=== PATIENT | male | born 1935 | race Caucasian/White ===

== ENCOUNTER → 2017-07-02 14:48 | Outpatient (CLI) | payer MEDICARE, OTHER, SELFPAY ==
[2017-07-02 17:34] LABS: Absolute Lymphocyte Count 1.03 X10^3/ul (0.83-4.51); Absolute Neutrophil Count 3.2 X10^3/uL (2.0-7.7); Basophil# 0.02 X10^3/uL; Basophil% 0.4 % (0-1); Eosinophil# 0.26 X10^3/uL; Eosinophils% 5.1 % (0-5); Hematocrit 36.4 % (40-54); Hemoglobin 12.1 g/dl (13.0-16.5); Lymphocyte # 1.03 X10^3/ul (4.0); Lymphocyte % 20.3 % (19-41); Mean Corp Hgb Conc 33.2 g/gl (32-36); Mean Corpuscular Hgb 30.3 pg (27.0-32.0); Mean Platelet Vol. 11.3 fl (6.2-12.0); Monocyte# 0.58 X10^3/uL; Monocyte% 11.4 % (0-10); Neutrophil # 3.19 X10^3/uL (2.7-7.7); Neutrophil % 62.8 % (47-70); Platelet Count 255 K/mm3 (150-450); RBC Distribution Width CV 12.6 % (11.6-14.6); RBC Distribution Width SD 41.6 fl (35.1-43.9); White Blood Count 5.1 K/mm3 (4.4-11.0)
[2017-07-02 17:46] LABS: POSITIVE COUNT NO; POSITIVE DIFFERENTIAL NO; POSITIVE MORPHOLOGY NO; Vitamin D,25 Hydroxy 30.4 ng/mL (29.95-100.01)
[2017-07-02 17:51] LABS: AST(SGOT) 27 U/L (15-37); Alanine Aminotransfer ALT/SGPT 24 U/L (16-61); Albumin, Serum 4.1 g/dL (3.2-5.0); Alkaline Phosphatase 68 U/L (45-117); Anion Gap 12 (5-15); BUN 30 mg/dL (7-18); Calcium,Total 8.7 mg/dL (8.5-10.1); Chloride 102 mmol/L (98-107); Creatinine, Serum 1.87 mg/dL (0.70-1.30); EST Glomerular Filtration Rate 37 mL/min (>60); Est Glom Filt Rate - Afr Amer 45 mL/min (>60); Globulin 4.1 g/dL (2.2-4.2); Glucose 75 mg/dL (74-106); Potassium 4.1 mmol/L (3.5-5.1); Protein, Total 8.2 g/dL (6.4-8.2); Sodium Level 138 mmol/L (136-145); Thyroid Stim Hormone (TSH) 4.74 uIU/mL (0.358-3.74)
== END ==
PROVIDERS: Family Provider Family Medicine Geriatric Medicine; PCP Family Medicine Geriatric Medicine; Visit Provider Family Medicine Geriatric Medicine
DX: E55.9 Vitamin D deficiency, unspecified (principal); R53.83 Other fatigue
CPT/HCPCS: 36415; 80053; 82306; 84443; 85025

== ENCOUNTER → 2017-08-14 09:03 | Outpatient (CLI) | payer MEDICARE, OTHER, SELFPAY ==
[2017-08-14 13:19] LABS: Thyroid Stim Hormone (TSH) 1.61 uIU/mL (0.358-3.74)
== END ==
PROVIDERS: Family Provider Family Medicine Geriatric Medicine; PCP Family Medicine Geriatric Medicine; Visit Provider Family Medicine Geriatric Medicine
DX: E03.9 Hypothyroidism, unspecified (principal)
CPT/HCPCS: 36415; 84443

== ENCOUNTER → 2018-01-03 13:51 | Outpatient (CLI) | payer MEDICARE, OTHER, SELFPAY ==
[2018-01-03 17:04] LABS: Absolute Lymphocyte Count 0.73 X10^3/ul (0.83-4.51); Basophil# 0.02 X10^3/uL; Basophil% 0.6 % (0-1); Eosinophil# 0.17 X10^3/uL; Hemoglobin 12.3 g/dl (13.0-16.5); Lymphocyte # 0.73 X10^3/ul (4.0); Lymphocyte % 21.5 % (19-41); Mean Corp Hgb Conc 32.4 g/gl (32-36); Mean Corpuscular Hgb 28.9 pg (27.0-32.0); Mean Corpuscular Volume 89.4 fL (80-94); Mean Platelet Vol. 10.4 fl (6.2-12.0); Monocyte# 0.52 X10^3/uL; Monocyte% 15.3 % (0-10); Neutrophil # 1.96 X10^3/uL (2.7-7.7); Neutrophil % 57.6 % (47-70); Platelet Count 218 K/mm3 (150-450); RBC Distribution Width CV 13.1 % (11.6-14.6); RBC Distribution Width SD 42.9 fl (35.1-43.9); Red Blood Count 4.25 M/mm3 (4.6-6.2); White Blood Count 3.4 K/mm3 (4.4-11.0)
[2018-01-03 17:06] LABS: POSITIVE COUNT NO; POSITIVE DIFFERENTIAL NO; POSITIVE MORPHOLOGY NO
[2018-01-03 17:21] LABS: Vitamin D,25 Hydroxy 28.1 ng/mL (29.95-100.01)
[2018-01-03 17:28] LABS: ALB/GLOB Ratio 1.1 RATIO (0.9-2.4); AST(SGOT) 30 U/L (15-37); Alanine Aminotransfer ALT/SGPT 21 U/L (16-61); Alkaline Phosphatase 64 U/L (45-117); Anion Gap 8 (5-15); BUN 41 mg/dL (7-18); Calcium,Total 8.5 mg/dL (8.5-10.1); Chloride 109 mmol/L (98-107); Creatinine, Serum 1.86 mg/dL (0.70-1.30); EST Glomerular Filtration Rate 37 mL/min (>60); Est Glom Filt Rate - Afr Amer 45 mL/min (>60); Globulin 3.8 g/dL (2.2-4.2); Glucose 122 mg/dL (74-106); Potassium 4.3 mmol/L (3.5-5.1); Protein, Total 7.8 g/dL (6.4-8.2); Sodium Level 141 mmol/L (136-145)
== END ==
PROVIDERS: Family Provider Family Medicine Geriatric Medicine; PCP Family Medicine Geriatric Medicine; Visit Provider Family Medicine Geriatric Medicine
DX: E55.9 Vitamin D deficiency, unspecified (principal); R53.83 Other fatigue
CPT/HCPCS: 36415; 80053; 82306; 84443; 85025

== ENCOUNTER → 2018-06-03 09:01 | Outpatient (CLI) | payer MEDICARE, OTHER, SELFPAY ==
[2018-03-04 14:19] VITALS: BMI 25.8
== END ==
PROVIDERS: Family Provider Family Medicine Geriatric Medicine; PCP Family Medicine Geriatric Medicine; Referring Provider Urology; Visit Provider Urology
DX: Z12.5 Encounter for screening for malignant neoplasm of prostate (principal)
CPT/HCPCS: 36415; 84153; G0103

== ENCOUNTER → 2018-07-04 13:54 | Outpatient (CLI) | payer MEDICARE, OTHER, SELFPAY ==
[2018-03-04 14:19] VITALS: BMI 25.8
[2018-07-04 14:24] LABS: Absolute Lymphocyte Count 1.01 X10^3/ul (0.83-4.51); Absolute Neutrophil Count 2.9 X10^3/uL (2.0-7.7); Basophil# 0.03 X10^3/uL; Basophil% 0.6 % (0-1); Eosinophil# 0.43 X10^3/uL; Eosinophils% 8.5 % (0-5); Hematocrit 38.3 % (40-54); Hemoglobin 12.4 g/dl (13.0-16.5); Lymphocyte # 1.01 X10^3/ul (4.0); Lymphocyte % 20.1 % (19-41); Mean Corp Hgb Conc 32.4 g/gl (32-36); Mean Corpuscular Hgb 29.3 pg (27.0-32.0); Mean Corpuscular Volume 90.5 fL (80-94); Mean Platelet Vol. 11.5 fl (6.2-12.0); Monocyte% 13.9 % (0-10); Neutrophil # 2.86 X10^3/uL (2.7-7.7); Neutrophil % 56.9 % (47-70); POSITIVE COUNT NO; POSITIVE DIFFERENTIAL NO; POSITIVE MORPHOLOGY NO; Platelet Count 227 K/mm3 (150-450); RBC Distribution Width CV 12.8 % (11.6-14.6); RBC Distribution Width SD 41.8 fl (35.1-43.9); Red Blood Count 4.23 M/mm3 (4.6-6.2)
[2018-07-04 14:31] LABS: Vitamin D,25 Hydroxy 32.5 ng/mL (29.95-100.01)
[2018-07-04 14:38] LABS: ALB/GLOB Ratio 1.2 RATIO (0.9-2.4); AST(SGOT) 25 U/L (15-37); Alanine Aminotransfer ALT/SGPT 19 U/L (16-61); Albumin, Serum 4.2 g/dL (3.2-5.0); Alkaline Phosphatase 56 U/L (45-117); Anion Gap 7 (5-15); BUN 37 mg/dL (7-18); BUN/Creat Ratio 19.4 RATIO (10-20); Calcium,Total 8.5 mg/dL (8.5-10.1); Chloride 105 mmol/L (98-107); Creatinine, Serum 1.91 mg/dL (0.70-1.30); EST Glomerular Filtration Rate 36 mL/min (>60); Est Glom Filt Rate - Afr Amer 44 mL/min (>60); Globulin 3.4 g/dL (2.2-4.2); Glucose 88 mg/dL (74-106); Potassium 4.3 mmol/L (3.5-5.1); Protein, Total 7.6 g/dL (6.4-8.2); Sodium Level 138 mmol/L (136-145); Thyroid Stim Hormone (TSH) 3.25 uIU/mL (0.358-3.74)
== END ==
PROVIDERS: Family Provider Family Medicine Geriatric Medicine; PCP Family Medicine Geriatric Medicine; Visit Provider Family Medicine Geriatric Medicine
DX: E55.9 Vitamin D deficiency, unspecified (principal); R53.83 Other fatigue
CPT/HCPCS: 36415; 80053; 82306; 84443; 85025

== ENCOUNTER → 2018-07-12 16:05 | Outpatient (CLI) | payer MEDICARE, OTHER, SELFPAY ==
[2018-03-04 14:19] VITALS: BMI 25.8
--- NOTE | 2018-07-12 16:10 | US_ITS ---
STUDY: ABDOMINAL ULTRASOUND - RIGHT UPPER QUADRANT REASON FOR VISIT: Male, 82 years old. Pain TECHNIQUE: Ultrasound evaluation of the right upper quadrant was performed with real-time and static flores-scale imaging. TECHNICAL QUALITY: Adequate. COMPARISON: None. FINDINGS: Liver: The liver measures 13.7 cm. There is normal echogenicity of the liver. The bile ducts are within normal limits. There is hepatic color flow. The direction of portal flow is hepatopetal. There is no demonstrated mass lesion. Gallbladder: Normal distended gallbladder. The gallbladder wall measures 2.4 mm. There is a negative sonographic Candelario's sign. There is no pericholecystic fluid. There are no gallstones. Common Bile Duct (C.B.D.): The common bile duct measures 2.0 mm. Pancreas: Head and uncinate process of the pancreas appear grossly normal. The body and tail the pancreas are obscured. Right Kidney: Normal size of the right kidney. The right kidney measures 9.2 x 4.6 x 4.7 cm. Normal renal cortex. The right cortex measures 1.0 cm. There is no demonstrated renal mass or cyst. There is no right hydronephrosis. US/Abdomen Limited IMPRESSION: Nonspecific distention of the gallbladder. No evidence of gallstones or ultrasound evidence of cholecystitis. Electronically Signed: Eloisa Benz MD at 16:03 EDT Tel , Service support ,
[2018-07-12 16:47] LABS: Absolute Lymphocyte Count 1.29 X10^3/ul (0.83-4.51); Absolute Neutrophil Count 2.5 X10^3/uL (2.0-7.7); Basophil# 0.03 X10^3/uL; Basophil% 0.6 % (0-1); Eosinophil# 0.32 X10^3/uL; Eosinophils% 6.8 % (0-5); Hematocrit 38.2 % (40-54); Hemoglobin 12.6 g/dl (13.0-16.5); Lymphocyte # 1.29 X10^3/ul (4.0); Lymphocyte % 27.4 % (19-41); Mean Corpuscular Hgb 29.4 pg (27.0-32.0); Mean Platelet Vol. 10.7 fl (6.2-12.0); Monocyte# 0.57 X10^3/uL; Monocyte% 12.1 % (0-10); Neutrophil # 2.49 X10^3/uL (2.7-7.7); Neutrophil % 53.1 % (47-70); Platelet Count 229 K/mm3 (150-450); RBC Distribution Width CV 12.9 % (11.6-14.6); RBC Distribution Width SD 41.4 fl (35.1-43.9); Red Blood Count 4.29 M/mm3 (4.6-6.2); White Blood Count 4.7 K/mm3 (4.4-11.0)
[2018-07-12 16:48] LABS: POSITIVE COUNT NO; POSITIVE DIFFERENTIAL NO; POSITIVE MORPHOLOGY NO
[2018-07-12 17:13] LABS: ALB/GLOB Ratio 1.3 RATIO (0.9-2.4); AST(SGOT) 32 U/L (15-37); Alanine Aminotransfer ALT/SGPT 23 U/L (16-61); Albumin, Serum 4.3 g/dL (3.2-5.0); Alkaline Phosphatase 60 U/L (45-117); Anion Gap 5 (5-15); BUN 26 mg/dL (7-18); BUN/Creat Ratio 14.3 RATIO (10-20); Calcium,Total 8.5 mg/dL (8.5-10.1); Chloride 107 mmol/L (98-107); Creatinine, Serum 1.82 mg/dL (0.70-1.30); EST Glomerular Filtration Rate 38 mL/min (>60); Est Glom Filt Rate - Afr Amer 46 mL/min (>60); Globulin 3.3 g/dL (2.2-4.2); Glucose 93 mg/dL (74-106); Potassium 4.2 mmol/L (3.5-5.1); Protein, Total 7.6 g/dL (6.4-8.2); Sodium Level 141 mmol/L (136-145)
== END ==
PROVIDERS: Family Provider Family Medicine Geriatric Medicine; PCP Family Medicine Geriatric Medicine; Referring Provider Family Medicine Geriatric Medicine; Visit Provider Family Medicine Geriatric Medicine
DX: R53.83 Other fatigue (principal)
CPT/HCPCS: 36415; 76705; 80053; 85025

== ENCOUNTER → 2018-12-12 09:42 | Outpatient (CLI) | payer MEDICARE, OTHER, SELFPAY ==
[2018-03-04 14:19] VITALS: BMI 25.8
[2018-12-12 12:24] LABS: Albumin, Serum 3.9 g/dL (3.2-5.0); BUN 31 mg/dL (7-18); BUN/Creat Ratio 18.1 RATIO (10-20); Calcium,Total 8.7 mg/dL (8.5-10.1); Chloride 105 mmol/L (98-107); Creatinine, Serum 1.71 mg/dL (0.70-1.30); EST Glomerular Filtration Rate 41 mL/min (>60); Est Glom Filt Rate - Afr Amer 50 mL/min (>60); Glucose 84 mg/dL (74-106); Potassium 4.7 mmol/L (3.5-5.1); Sodium Level 140 mmol/L (136-145)
[2018-12-12 12:25] LABS: Protein, Urine (Random) 27.9 mg/dL (<11.9); Protein:Creat Ratio 220 mg/g CRE (0-200)
[2018-12-12 12:35] LABS: PTHIN 54.2 pg/mL (18.4-80.1)
== END ==
PROVIDERS: Family Provider Family Medicine Geriatric Medicine; PCP Family Medicine Geriatric Medicine; Visit Provider Internal Medicine Nephrology
DX: D89.0 Polyclonal hypergammaglobulinemia (principal)
CPT/HCPCS: 36415; 80069; 82570; 83970; 84156

== ENCOUNTER → 2018-12-31 13:21 | Outpatient (CLI) | payer MEDICARE, OTHER, SELFPAY ==
[2018-03-04 14:19] VITALS: BMI 25.8
--- NOTE | 2019-01-01 08:45 | PFT ---
INTRODUCTION: The patient is an 83-year-old male that presents for pulmonary function studies secondary to a diagnosis of asthma. Respiratory therapy reports good patient effort. Bronchodilators were used with testing. INTERPRETATION: Forced expiration spirometry demonstrates no evidence of a large airways obstructive ventilatory defect. There was no significant response to aerosolized bronchodilators, based upon strict ATS criteria. Spirograms are of good quality and plateau normally. Body plethysmography was performed and reveals lung volumes to be within normal limits. Diffusing capacity by single breath CO is within normal limits at 80% of predicted. IMPRESSION: Normal pulmonary function studies.
== END ==
PROVIDERS: Family Provider Family Medicine Geriatric Medicine; PCP Family Medicine Geriatric Medicine; Referring Provider Internal Medicine Critical Care Medicine; Visit Provider Internal Medicine Critical Care Medicine
DX: J62.8 Pneumoconiosis due to other dust containing silica (principal); J45.909 Unspecified asthma, uncomplicated; G47.61 Periodic limb movement disorder
CPT/HCPCS: 94060; 94726; 94729

== ENCOUNTER → 2019-01-09 11:05 | Outpatient (CLI) | payer MEDICARE, OTHER, SELFPAY ==
[2019-01-09 08:07] VITALS: BMI 24.9
[2019-01-09 11:46] LABS: Absolute Lymphocyte Count 1.03 X10^3/uL (0.83-4.51); Absolute Neutrophil Count 3.6 X10^3/uL (2.0-7.7); Basophil# 0.02 X10^3/uL; Basophil% 0.4 % (0-1); Eosinophil# 0.47 X10^3/uL; Eosinophils% 8.3 % (0-5); Hematocrit 39.6 % (40-54); Hemoglobin 12.8 g/dL (13.0-16.5); Lymphocyte # 1.03 X10^3/ul (4.0); Lymphocyte % 18.3 % (19-41); Mean Corp Hgb Conc 32.3 g/dL (32-36); Mean Corpuscular Hgb 29.7 pg (27.0-32.0); Mean Corpuscular Volume 91.9 fL (80-94); Mean Platelet Vol. 12.2 fl (6.2-12.0); Monocyte% 8.9 % (0-10); NRBC Flagged by Analyzer 0 % (0-5); Neutrophil # 3.58 X10^3/uL (2.7-7.7); Neutrophil % 63.6 % (47-70); POSITIVE COUNT YES; Platelet Count 172 K/mm3 (150-450); RBC Distribution Width CV 12.3 % (11.6-14.6); RBC Distribution Width SD 41.1 fl (35.1-43.9); Red Blood Count 4.31 M/mm3 (4.6-6.2); White Blood Count 5.6 K/mm3 (4.4-11.0)
[2019-01-09 11:51] LABS: Differential Indicated SCAN CRITERIA MET
[2019-01-09 12:08] LABS: ALB/GLOB Ratio 1.1 RATIO (0.9-2.4); AST(SGOT) 26 U/L (15-37); Alanine Aminotransfer ALT/SGPT 20 U/L (16-61); Albumin, Serum 3.9 g/dL (3.2-5.0); Alkaline Phosphatase 75 U/L (45-117); Anion Gap 6 (5-15); BUN 35 mg/dL (7-18); BUN/Creat Ratio 19.6 RATIO (10-20); Calcium,Total 8.7 mg/dL (8.5-10.1); Chloride 104 mmol/L (98-107); Creatinine, Serum 1.79 mg/dL (0.70-1.30); EST Glomerular Filtration Rate 39 mL/min (>60); Est Glom Filt Rate - Afr Amer 47 mL/min (>60); Globulin 3.6 g/dL (2.2-4.2); Glucose 93 mg/dL (74-106); Potassium 4.5 mmol/L (3.5-5.1); Protein, Total 7.5 g/dL (6.4-8.2); Sodium Level 139 mmol/L (136-145); Thyroid Stim Hormone (TSH) 3.52 uIU/mL (0.358-3.74)
[2019-01-09 12:36] LABS: Platelet Estimate ADEQUATE (ADEQ); Platelet Morphology CLUMPED
== END ==
PROVIDERS: Family Provider Family Medicine Geriatric Medicine; PCP Family Medicine Geriatric Medicine; Visit Provider Family Medicine Geriatric Medicine
DX: R53.83 Other fatigue (principal); E55.9 Vitamin D deficiency, unspecified
CPT/HCPCS: 36415; 80053; 82306; 84443; 85025

== ENCOUNTER → 2019-05-28 07:51 | Outpatient (CLI) | payer MEDICARE, OTHER, SELFPAY ==
[2018-03-04 14:19] VITALS: BMI 25.8
[2019-03-07 11:31] VITALS: BMI 24.6
[2019-05-28 08:51] LABS: Mean Corp Hgb Conc 32.4 g/dL (32-36); Mean Corpuscular Hgb 29.4 pg (27.0-32.0); Mean Corpuscular Volume 90.9 fL (80-94); Mean Platelet Vol. 9.9 fl (6.2-12.0); Platelet Count 461 K/mm3 (150-450); RBC Distribution Width SD 39.8 fl (35.1-43.9); Red Blood Count 3.74 M/mm3 (4.6-6.2); White Blood Count 8.1 K/mm3 (4.4-11.0)
[2019-05-28 09:28] LABS: Albumin, Serum 3.1 g/dL (3.2-5.0); BUN 37 mg/dL (7-18); BUN/Creat Ratio 21.3 RATIO (10-20); Calcium,Total 8.6 mg/dL (8.5-10.1); Chloride 103 mmol/L (98-107); Creatinine, Serum 1.74 mg/dL (0.70-1.30); EST Glomerular Filtration Rate 40 mL/min (>60); Est Glom Filt Rate - Afr Amer 49 mL/min (>60); Glucose 116 mg/dL (74-106); Phosphorus 2.7 mg/dL (2.5-4.9); Potassium 4.1 mmol/L (3.5-5.1); Sodium Level 136 mmol/L (136-145)
[2019-05-28 09:32] LABS: PTHIN 49.5 pg/mL (18.4-80.1)
== END ==
LOC: LAB.FUTURE 07:54 → LAB 08:03
PROVIDERS: Family Provider Family Medicine Geriatric Medicine; PCP Family Medicine Geriatric Medicine; Referring Provider Internal Medicine Nephrology; Visit Provider Internal Medicine Nephrology
DX: N18.3 Chronic kidney disease, stage 3 (moderate) (principal)
CPT/HCPCS: 36415; 80069; 83970; 85027

== ENCOUNTER → 2019-06-03 | Outpatient (CLI) | payer MEDICARE, OTHER, SELFPAY ==
[2019-03-07 11:31] VITALS: BMI 24.6
--- NOTE | 2019-06-03 | CYSPIN_PTH ---
PATIENT: JASON TOWNSEND LOC: [facility] U#:[id number] AGE/SX: 83/M ROOM: RE06/03/[address]: Dr. Armin Mccallum MD : 1935 BED: DIS: 06/03/2019 SPEC #: [id number] RECD: 06/03/19 09:45 STATUS: NICOLAS REAnge #: [id number] MERARY: 06/03/19 00:[address]: Armin Mccallum DEPT: CYTOLOGY RECD BY: Rigo Orourke ENTERED: 06/03/19 13:02 SP TYPE: CYSPIN FL OTHR DR: Dr. Iván Ruby MD Tissues: Urine Procedures: Pap Stain (control) Special Stain Group II Cytospin Fluid HEADER OPERATION: Not noted PRE-OP DIAGNOSIS: Gross hematuria TISSUE SUBMITTED: Urine for cytology DIAGNOSIS CYTOLOGY Urine for cytology (cytospin): Negative for malignant cells. See comment. AM:matthew 06/04/19 COMMENT The specimen contains acute and chronic inflammatory cells. Clinical correlation is suggested. CYTOLOGY STUDY Slides are reviewed. CYTOLOGY GROSS Received is 60 ml of cloudy red fluid labeled with the patient's name and and designated per the requisition as urine. Submitted for cytology preparation. / matthew 06/03/19 TC:5 CPT: 52686
[2019-06-03 11:12] LABS: Cytology, Body Fluid / CSF SEE PATHOLOGY REPORT
== END | disposition home or self-care (01) ==
LOC: LABSPEC 10:54
PROVIDERS: PCP Family Medicine Geriatric Medicine; Referring Provider Urology; Visit Provider Urology
DX: R31.0 Gross hematuria (principal)
CPT/HCPCS: 88108; 88313

== ENCOUNTER → 2019-06-06 07:15 | Outpatient (CLI) | payer MEDICARE, OTHER, SELFPAY ==
[2019-03-07 11:31] VITALS: BMI 24.6
--- NOTE | 2019-06-06 07:21 | CT_ITS ---
STUDY: CT ABDOMEN AND PELVIS WITH AND WITHOUT CONTRAST REASON FOR EXAM: Male, 83 years old. Gross hematuria RADIATION DOSAGE (If Supplied By Facility): CTDIvol = ( 11.45 ) mGy, DLP = ( 1409.94 ) mGycm TECHNIQUE: Transaxial images were obtained from the dome of the diaphragm to the symphysis pubis without oral contrast. Oral and amp; IV Gastrografin and amp; 75mL Isovue-300 was administered. Sagittal and coronal images were reconstructed. Individualized dose optimization techniques were used for this CT. COMPARISON: 18 February 2015 FINDINGS: There are small bilateral pleural effusions and basilar atelectasis. There are no urinary calculi, hydronephrosis or masses. Bladder is normal. Prostate is enlarged. There is a 1 cm left adrenal and a normal appearance right adrenal is normal. Liver, spleen, gallbladder and pancreas are normal. There is no intestinal obstruction. There is prior bilateral inguinal hernia repair. Appearance is similar to prior. CT/CT Abd/Pelvis W/WO Contrast IMPRESSION: 1. Prostatomegaly. 2. Otherwise unremarkable urinary tract. 3. Bilateral pleural effusions. Electronically Signed: Rodney Espinosa, at 16:54 EST Tel , Service support ,
== END ==
PROVIDERS: PCP Family Medicine Geriatric Medicine; Referring Provider Urology; Visit Provider Urology
DX: R31.0 Gross hematuria (principal)
CPT/HCPCS: 74178; Q9967

== ENCOUNTER → 2019-12-09 12:26 | Outpatient (CLI) | payer MEDICARE, OTHER, SELFPAY ==
[2019-03-07 11:31] VITALS: BMI 24.6
[2019-12-09 13:05] LABS: Hematocrit 31.7 % (40-54); Hemoglobin 10.3 g/dL (13.0-16.5); Mean Corp Hgb Conc 32.5 g/dL (32-36); Mean Corpuscular Hgb 29.9 pg (27.0-32.0); Mean Corpuscular Volume 91.9 fL (80-94); Mean Platelet Vol. 11.1 fl (6.2-12.0); Platelet Count 253 K/mm3 (150-450); RBC Distribution Width CV 12.5 % (11.6-14.6); RBC Distribution Width SD 41.6 fl (35.1-43.9); Red Blood Count 3.45 M/mm3 (4.6-6.2); White Blood Count 5.3 K/mm3 (4.4-11.0)
[2019-12-09 13:36] LABS: Protein, Urine (Random) 303.9 mg/dL (<11.9); Protein:Creat Ratio 2082 mg/g CRE (0-200)
[2019-12-09 13:57] LABS: BUN 31 mg/dL (7-18); BUN/Creat Ratio 18.5 RATIO (10-20); Calcium,Total 8.1 mg/dL (8.5-10.1); Chloride 105 mmol/L (98-107); Creatinine, Serum 1.68 mg/dL (0.70-1.30); EST Glomerular Filtration Rate 42 mL/min (>60); Est Glom Filt Rate - Afr Amer 51 mL/min (>60); Glucose 119 mg/dL (74-106); Phosphorus 3.1 mg/dL (2.5-4.9); Potassium 4.1 mmol/L (3.5-5.1); Sodium Level 138 mmol/L (136-145)
== END ==
PROVIDERS: PCP Family Medicine Geriatric Medicine; Referring Provider Internal Medicine Nephrology; Visit Provider Internal Medicine Nephrology
DX: N18.3 Chronic kidney disease, stage 3 (moderate) (principal); D89.0 Polyclonal hypergammaglobulinemia
CPT/HCPCS: 36415; 80069; 82570; 84156; 85027

== ENCOUNTER → 2019-12-10 10:22 | Outpatient (CLI) | payer MEDICARE, OTHER, SELFPAY ==
[2019-03-07 11:31] VITALS: BMI 24.6
[2019-12-10 12:33] LABS: Ferritin 158 ng/mL (26-388); Iron 67 ug/dL (65-175); Iron Binding Capacity,Total 231 ug/dL (250-450)
[2019-12-12 09:07] LABS: Albumin 3.1 g/dL (2.9-4.4); Alpha-1-Globulins 0.2 g/dL (0.0-0.4); Alpha-2-Globulins 0.8 g/dL (0.4-1.0); Free Lambda Light Chains 58.1 mg/L (5.7-26.3); Gamma Globulin 1.6 g/dL (0.4-1.8); Immunoglobulin A 434 mg/dL (61-437); Immunoglobulin G 1673 mg/dL (603-1613); Immunoglobulin M 56 mg/dL (15-143); PROEL- TOTAL PROTEIN 7.1 g/dL (6.0-8.5)
[2019-12-15 14:08] LABS: Albumin, Ur 81.8 % (.); Alpha-1-Globulin, Ur 3.2 % (.); Alpha-2-Globulins, Ur 2.6 % (.); Beta Globulin, Ur 8.3 % (.); Gamma Globulin, Ur 4.1 % (.); M-Spike, Ur % Not Observed % (Not Observed)
[2019-12-16 04:53] LABS: Total Protein, Ur 340.1 mg/dL (Not Estab.)
== END ==
PROVIDERS: PCP Family Medicine Geriatric Medicine; Referring Provider Internal Medicine Nephrology; Visit Provider Internal Medicine Nephrology
DX: D89.0 Polyclonal hypergammaglobulinemia (principal)
CPT/HCPCS: 36415; 82728; 82784; 83540; 83550; 83883; 84165; 84166; 86334; 86335

== ENCOUNTER → 2019-12-15 08:59 | Outpatient (CLI) | payer MEDICARE, OTHER, SELFPAY ==
[2019-03-07 11:31] VITALS: BMI 24.6
--- NOTE | 2019-12-15 10:44 | PFTCOMP_ITS ---
COMPLETE PULMONARY FUNCTION TEST INTERPRETATION Brief HPI: Patient is an 84 year old male, currently under the care of myself, who presents to [facility] for complete pulmonary function tests secondary to diagnosis of pneumoconiosis. Respiratory therapist reports good effort and reproducible results. Interpretation: Forced expiration spirometry shows no large airways obstructive ventilatory defect with an FEV1 of 102% predicted. There is no significant bronchodilator response by strict ATS criteria. Spirograms are of good quality and plateau normally. The respiratory flow volume loop shows decreased expiratory flow rates at high lung volumes consistent with small airways obstruction. Lung volumes by body plethysmography show a normal total lung capacity at 5.6 L, 96% predicted. All other lung volumes are within normal limits. Diffusion capacity by carbon monoxide is normal at 93% predicted. The airway resistance is normal. Compared to previous pulmonary function tests from 12/31/2018, there is been a significant improvement in FVC and TLC by 15% and 18% respectively. Impression: Normal pulmonary function tests with significant improvement compared to 2019.
== END ==
PROVIDERS: PCP Family Medicine Geriatric Medicine; Referring Provider Internal Medicine Critical Care Medicine; Visit Provider Internal Medicine Critical Care Medicine
DX: J62.8 Pneumoconiosis due to other dust containing silica (principal)
CPT/HCPCS: 94060; 94726; 94729

== ENCOUNTER → 2020-01-12 11:21 | Outpatient (CLI) | payer MEDICARE, OTHER, SELFPAY ==
[2019-12-23 05:40] VITALS: BMI 22.3
[2020-01-12 12:29] LABS: Absolute Lymphocyte Count 1.14 X10^3/uL (0.83-4.51); Absolute Neutrophil Count 2.5 X10^3/uL (2.0-7.7); Basophil# 0.01 X10^3/uL; Basophil% 0.2 % (0-1); Eosinophil# 0.13 X10^3/uL; Hematocrit 33.8 % (40-54); Hemoglobin 11.1 g/dL (13.0-16.5); Lymphocyte # 1.14 X10^3/ul (4.0); Lymphocyte % 26.2 % (19-41); Mean Corp Hgb Conc 32.8 g/dL (32-36); Mean Corpuscular Volume 91.4 fL (80-94); Mean Platelet Vol. 11.6 fl (6.2-12.0); Monocyte# 0.54 X10^3/uL; Monocyte% 12.4 % (0-10); NRBC Flagged by Analyzer 0 % (0-5); Neutrophil # 2.52 X10^3/uL (2.7-7.7); Platelet Count 246 K/mm3 (150-450); RBC Distribution Width CV 12.6 % (11.6-14.6); White Blood Count 4.4 K/mm3 (4.4-11.0)
[2020-01-12 12:44] LABS: Vitamin D,25 Hydroxy 49.9 ng/mL
[2020-01-12 13:12] LABS: ALB/GLOB Ratio 0.8 RATIO (0.9-2.4); AST(SGOT) 34 U/L (15-37); Alanine Aminotransfer ALT/SGPT 20 U/L (16-61); Albumin, Serum 3.3 g/dL (3.2-5.0); Alkaline Phosphatase 60 U/L (45-117); Anion Gap 4 (5-15); BUN 30 mg/dL (7-18); BUN/Creat Ratio 19.1 RATIO (10-20); Calcium,Total 8.6 mg/dL (8.5-10.1); Chloride 107 mmol/L (98-107); Creatinine, Serum 1.57 mg/dL (0.70-1.30); EST Glomerular Filtration Rate 45 mL/min (>60); Est Glom Filt Rate - Afr Amer 55 mL/min (>60); Globulin 4.4 g/dL (2.2-4.2); Glucose 90 mg/dL (74-106); Potassium 4.2 mmol/L (3.5-5.1); Protein, Total 7.7 g/dL (6.4-8.2); Sodium Level 137 mmol/L (136-145); Thyroid Stim Hormone (TSH) 8.23 uIU/mL (0.358-3.74)
== END ==
PROVIDERS: Visit Provider Family Medicine Geriatric Medicine
DX: E55.9 Vitamin D deficiency, unspecified (principal); R53.83 Other fatigue
CPT/HCPCS: 36415; 80053; 82306; 84443; 85025

== ENCOUNTER → 2020-03-01 11:32 | Outpatient (CLI) | payer MEDICARE, OTHER, SELFPAY ==
[2019-12-23 05:40] VITALS: BMI 22.3
[2020-03-01 12:30] LABS: Thyroid Stim Hormone (TSH) 3.22 uIU/mL (0.358-3.74)
== END ==
PROVIDERS: PCP Family Medicine Geriatric Medicine; Visit Provider Family Medicine Geriatric Medicine
DX: E03.9 Hypothyroidism, unspecified (principal)
CPT/HCPCS: 36415; 84443

== ENCOUNTER 2020-05-07 09:17 | Outpatient (RCR) | payer MEDICARE, OTHER, SELFPAY ==
[2020-03-01 11:36] VITALS: BMI 22.4
== END 2020-05-07 23:59 ==
LOC: IMMUN 09:17
PROVIDERS: PCP Family Medicine Geriatric Medicine; Visit Provider Family Medicine
DX: Z23 Encounter for immunization (principal)
CPT/HCPCS: 0011A; 0012A; 91301

== ENCOUNTER → 2020-07-12 10:31 | Outpatient (CLI) | payer MEDICARE, OTHER, SELFPAY ==
[2020-03-01 11:36] VITALS: BMI 22.4
[2020-07-12 12:32] LABS: Absolute Neutrophil Count 4.3 X10^3/uL (2.0-7.7); Basophil# 0.03 X10^3/uL; Basophil% 0.5 % (0-1); Eosinophil# 0.14 X10^3/uL; Eosinophils% 2.4 % (0-5); Hematocrit 28.1 % (40-54); Lymphocyte % 11.9 % (19-41); Mean Corpuscular Hgb 29.8 pg (27.0-32.0); Mean Platelet Vol. 11.6 fl (6.2-12.0); Monocyte# 0.74 X10^3/uL; Monocyte% 12.6 % (0-10); NRBC Flagged by Analyzer 0 % (0-5); Neutrophil # 4.26 X10^3/uL (2.7-7.7); Neutrophil % 72.3 % (47-70); Platelet Count 213 K/mm3 (150-450); RBC Distribution Width SD 40.9 fl (35.1-43.9); Red Blood Count 3.02 M/mm3 (4.6-6.2); White Blood Count 5.9 K/mm3 (4.4-11.0)
[2020-07-12 12:42] LABS: Vitamin D,25 Hydroxy 30.5 ng/mL
[2020-07-12 12:59] LABS: ALB/GLOB Ratio 0.8 RATIO (0.9-2.4); AST(SGOT) 18 U/L (15-37); Alanine Aminotransfer ALT/SGPT 17 U/L (16-61); Albumin, Serum 3.7 g/dL (3.2-5.0); Alkaline Phosphatase 67 U/L (45-117); Anion Gap 7 (5-15); BUN 64 mg/dL (7-18); BUN/Creat Ratio 14.3 RATIO (10-20); Calcium,Total 8.4 mg/dL (8.5-10.1); Chloride 104 mmol/L (98-107); Creatinine, Serum 4.48 mg/dL (0.70-1.30); EST Glomerular Filtration Rate 13 mL/min (>60); Est Glom Filt Rate - Afr Amer 16 mL/min (>60); Globulin 4.5 g/dL (2.2-4.2); Glucose 121 mg/dL (74-106); Protein, Total 8.2 g/dL (6.4-8.2); Sodium Level 134 mmol/L (136-145); Thyroid Stim Hormone (TSH) 2.01 uIU/mL (0.358-3.74)
== END ==
PROVIDERS: PCP Family Medicine Geriatric Medicine; Visit Provider Family Medicine Geriatric Medicine
DX: E55.9 Vitamin D deficiency, unspecified (principal)
CPT/HCPCS: 36415; 80053; 82306; 84443; 85025

== ENCOUNTER → 2020-07-13 10:17 | Outpatient (CLI) | payer MEDICARE, OTHER, SELFPAY ==
[2020-03-01 11:36] VITALS: BMI 22.4
--- NOTE | 2020-07-13 10:20 | US_ITS ---
STUDY: RENAL ULTRASOUND - COMPLETE REASON FOR EXAM: Male, 84 years old. ACUTE KIDNEY Failure, unspecified TECHNIQUE: Ultrasound evaluation of the kidneys was performed with real-time and static burgess-scale imaging. COMPARISON: None. FINDINGS: RIGHT KIDNEY: Normal location of the right kidney, which is normal in size. The right kidney measures 10.8 cm x 4.8 cm x 6 cm. There is a normal cortex of the right kidney. The renal cortex measures 1.4 cm. There is no right renal mass or cyst. There are no right renal calculi. There is no right hydronephrosis. DISTAL RIGHT URETER: There is non-visualization of the distal right ureter. There is no demonstrated right ureterovesical junction calculus. There is no demonstrated right ureteral jet. LEFT KIDNEY: Normal location of the left kidney, which is normal in size. The left kidney measures 10.4 cm x 5 cm x 5.9 cm. There is a normal cortex of the left kidney. The renal cortex measures 1.6 cm. There is no left renal mass or cyst. There are no left renal calculi. There is no left hydronephrosis. DISTAL LEFT URETER: There is non-visualization of the distal left ureter. There is no demonstrated left ureterovesical junction calculus. There is no demonstrated left ureteral jet. BLADDER: The distended urinary bladder has a volume of 2091 ml. There is a normal wall thickness of the distended urinary bladder. There is no demonstrated mass within the urinary bladder. There are no demonstrated bladder calculi. US/Kidney and Bladder IMPRESSION: Normal ultrasound of the kidneys and urinary bladder. Electronically Signed: Wilberto Jimenez MD at 11:17 EDT , Service support ,
[2020-07-13 15:49] LABS: Anion Gap 5 (5-15); BUN 66 mg/dL (7-18); Calcium,Total 7.9 mg/dL (8.5-10.1); Chloride 108 mmol/L (98-107); EST Glomerular Filtration Rate 14 mL/min (>60); Est Glom Filt Rate - Afr Amer 17 mL/min (>60); Glucose 84 mg/dL (74-106); Potassium 5.1 mmol/L (3.5-5.1); Sodium Level 136 mmol/L (136-145)
== END ==
PROVIDERS: PCP Family Medicine Geriatric Medicine; Referring Provider Family Medicine Geriatric Medicine; Visit Provider Family Medicine Geriatric Medicine
DX: N17.0 Acute kidney failure with tubular necrosis (principal)
CPT/HCPCS: 36415; 76770; 80048

== ENCOUNTER → 2020-07-16 10:24 | Outpatient (CLI) | payer MEDICARE, OTHER, SELFPAY ==
[2020-03-01 11:36] VITALS: BMI 22.4
[2020-07-16 11:44] LABS: Anion Gap 8 (5-15); BUN 59 mg/dL (7-18); Calcium,Total 8.6 mg/dL (8.5-10.1); Chloride 104 mmol/L (98-107); Creatinine, Serum 4.55 mg/dL (0.70-1.30); EST Glomerular Filtration Rate 13 mL/min (>60); Est Glom Filt Rate - Afr Amer 16 mL/min (>60); Glucose 89 mg/dL (74-106); Potassium 4.7 mmol/L (3.5-5.1); Sodium Level 135 mmol/L (136-145)
== END ==
PROVIDERS: PCP Family Medicine Geriatric Medicine; Visit Provider Family Medicine Geriatric Medicine
DX: N17.9 Acute kidney failure, unspecified (principal)
CPT/HCPCS: 36415; 80048

== ENCOUNTER → 2020-07-21 | Outpatient (CLI) | payer MEDICARE, OTHER, SELFPAY ==
[2019-03-07 11:31] VITALS: BMI 24.6
[2020-03-01 11:36] VITALS: BMI 22.4
[2020-07-21 10:58] LABS: Albumin, Serum 3.6 g/dL (3.2-5.0); BUN 80 mg/dL (7-18); BUN/Creat Ratio 15.4 RATIO (10-20); Calcium,Total 8.3 mg/dL (8.5-10.1); Chloride 106 mmol/L (98-107); Creatinine, Serum 5.18 mg/dL (0.70-1.30); EST Glomerular Filtration Rate 11 mL/min (>60); Est Glom Filt Rate - Afr Amer 14 mL/min (>60); Glucose 144 mg/dL (74-106); Phosphorus 5.1 mg/dL (2.5-4.9); Potassium 4.3 mmol/L (3.5-5.1); Sodium Level 135 mmol/L (136-145)
[2020-07-21 11:07] LABS: 24 Hour Urine Protein 1787.5 mg/24HR (<150 MG/24HR); 24HR. UA Prot. Total Volume 2750 mL
[2020-07-21 13:22] LABS: Creat.Clear Total Volume 2750 mL; Creatinine Clearance 16 ml/min (100-200); Creatinine Serum Creat 5.2 mg/dL (0.8-1.3); Creatinine Urine 42.2 mg/dL (NO RANGE EST.); EST Glomerular Filtration Rate 11 mL/min (>60); Est Glom Filt Rate - Afr Amer 14 mL/min (>60)
== END | disposition home or self-care (01) ==
LOC: LAB 10:20 → LABSPEC 10:24
PROVIDERS: PCP Family Medicine Geriatric Medicine; Referring Provider Internal Medicine Nephrology; Visit Provider Internal Medicine Nephrology
DX: N18.5 Chronic kidney disease, stage 5 (principal)
CPT/HCPCS: 36415; 80069; 82575; 84156

== ENCOUNTER → 2020-07-27 08:45 | Outpatient (CLI) | payer MEDICARE, OTHER, SELFPAY ==
[2020-03-01 11:36] VITALS: BMI 22.4
--- NOTE | 2020-07-27 08:48 | VDUE_ITS ---
Reason For Study: CKD 5 Right Arm Left Arm Right cephalic vein is compressible. Left cephalic vein is compressible. Right Cephalic Vein at the shoulder Left Cephalic Vein at the shoulder measures .09 x .1 cm. measures .13 x .15 cm. Right Cephalic Vein mid bicep measures .14 Left Cephalic Vein at mid bicep measures .16 x .17 cm. x .18 cm. Right Cephalic Vein above antecub Left Cephalic Vein above antecub measures .19 measures .18 x .2 cm. x .22 cm. Right Cephalic Vein below antecub Left Cephalic Vein below antecub measures .12 measures .16 x .17 cm. x .14 cm. Right Cephalic Vein in the forearm Left Cephalic Vein in the forearm measures .19 x .25 cm. measures .09 x .12 cm. Right Cephalic Vein at the wrist measures .19 Left Cephalic Vein at the wrist measures .05 x .21 cm. x .06 cm. Right basilic vein is compressible. Left basilic vein is compressible. Right Basilic Vein mid bicep measures .28 Basilic vein at bicep measures .33 x .32 cm. x .29 cm. Basilic vein above antecub measures .19 x .2 Right Basilic Vein above antecub measures .19 cm. x .2 cm. Basilic vein below antecub measures .14 x .15 Right Basilic Vein below antecub measures .05 cm. x .07 cm. Basilic vein in the forearm measures .1 x .12 Right Basilic Vein in the forearm cm. measures .08 x .1 cm. Basilic vein at the wrist measures .08 x .09 Right Basilic Vein at the wrist measures .07 cm. x .08 cm. Brachial art .44 x .45 cm Brachial art .47 x .46 cm Brachial art 66.0 cm/s Brachial art 71.2 cm/s Radial art .26 x .28 cm. Radial art .23 x .28 cm. Radial art 60.8 cm/s. Radial art 68.6 cm/s. VL/Saphenous Vein Mapping, Bilat Interpretation Summary Patent and compressible bilateral upper extremity cephalic and basilic veins ho wever dimensions as noted appear to be small to even diminutive bilaterally. Normal brachial artery and radial artery diameter and flow bilaterally Ordering Physician: Claudia Ruvalcaba Performed By: Jefe Orosco RVT ?
== END ==
PROVIDERS: PCP Family Medicine Geriatric Medicine; Referring Provider Internal Medicine Nephrology; Visit Provider Internal Medicine Nephrology
DX: Z01.818 Encounter for other preprocedural examination (principal); N18.5 Chronic kidney disease, stage 5
CPT/HCPCS: 93970; 93985

== ENCOUNTER 2020-08-20 08:58 | Day surgery (SDC) | payer MEDICARE, OTHER, SELFPAY ==
[2020-08-05 08:44] VITALS: BMI 23.6
--- NOTE | 2020-08-13 09:37 | NURSING ---
pt reports second Moderna vaccine 06/04/20
--- NOTE | 2020-08-16 12:33 | EKG12_ITS ---
Test Reason : PRE OP Blood Pressure : / mmHG Vent. Rate : 070 BPM Atrial Rate : 070 BPM P-R Int : 196 ms QRS Dur : 138 ms QT Int : 420 ms P-R-T Axes : 019 -57 048 degrees QTc Int : 453 ms Normal sinus rhythm Right bundle branch block Left anterior fascicular block Bifascicular block Abnormal ECG Confirmed by AMBER GATES, JACK ([id number]), supervising editor news reel ALEXEY FLOREZ ([id number]) on 08/17/2020 11:15:31 AM Referred By: Gregg Saini Confirmed By:JACK CLARK MD
[2020-08-16 13:56] LABS: Hematocrit 21.7 % (40-54); Hemoglobin 6.7 g/dL (13.0-16.5); Mean Corp Hgb Conc 30.9 g/dL (32-36); Mean Corpuscular Hgb 29.1 pg (27.0-32.0); Mean Corpuscular Volume 94.3 fL (80-94); Mean Platelet Vol. 11.2 fl (6.2-12.0); Platelet Count 249 K/mm3 (150-450); RBC Distribution Width CV 13.2 % (11.6-14.6); RBC Distribution Width SD 45.3 fl (35.1-43.9); White Blood Count 3.3 K/mm3 (4.4-11.0)
[2020-08-16 14:34] LABS: Anion Gap 12 (5-15); BUN 109 mg/dL (7-18); BUN/Creat Ratio 14.6 RATIO (10-20); Calcium,Total 7.6 mg/dL (8.5-10.1); Chloride 108 mmol/L (98-107); Creatinine, Serum 7.46 mg/dL (0.70-1.30); EST Glomerular Filtration Rate 8 mL/min (>60); Est Glom Filt Rate - Afr Amer 9 mL/min (>60); Glucose 102 mg/dL (74-106); Potassium 4.7 mmol/L (3.5-5.1); Sodium Level 138 mmol/L (136-145)
[2020-08-20] VITALS (9 sets, daily range): BP systolic 104–155; BP diastolic 58–85; PULSE 68–76; RESP 16–18; TEMP 36.3–36.6; O2SAT 93–100; BMI 23.9
--- NOTE | 2020-08-20 10:13 | PCM.HP.BLA ---
History and Physical Date of Admission: 08/20/20 Intake Visit Reasons: Chronic Kidney Disease/Vein Mapping 07/27 [facility]? Search Engine Optimization Manager Required: No Is patient in pain?: No Allergies No Known Allergies Allergy (Verified 08/05/20 08:45) Medications Finasteride [Proscar] 5 mg PO DAILY 11/09/14 [History Confirmed 08/05/20] ibuprofen 200 mg tablet 200 mg PO ONCE PRN? tab 11/19/17 [History Confirmed 08/05/20] multivitamin 1 tab PO DAILY 03/07/19 [History Confirmed 08/05/20] budesonide-formoterol HFA 160 mcg-4.5 mcg/actuation aerosol inhaler 2 puff INHALATION BID #3 device 04/30/19 [Rx Confirmed 08/05/20] aspirin 81 mg tablet,delayed release 81 mg PO DAILY #1 tab 03/01/20 [Rx Confirmed 03/01/20] levothyroxine 75 mcg tablet 75 mcg PO DAILY 03/01/20 [History Confirmed 08/05/20] gabapentin 600 mg tablet 300 mg PO QHS? tablet 07/23/20 [History Confirmed 08/05/20] tamsulosin 0.4 mg capsule 0.4 mg PO DAILY 07/23/20 [History Confirmed 08/05/20] [facility] Medical History? Periodic limb movement disorder (Chronic) History of non-ST elevation myocardial infarction (NSTEMI) (Chronic) COPD (chronic obstructive pulmonary disease) (Chronic) Hypothyroidism (Chronic) Chest pain (Acute) Lymphadenopathy (Chronic) Silicosis (Chronic) Hypersomnia (Chronic) Shortness of breath (Chronic) Anemia (Chronic) Premature ventricular contractions (Chronic) Atherosclerotic heart disease of [place] coronary artery without angina pectoris (Chronic) Asthma (Chronic) Paroxysmal atrial fibrillation (Chronic) Allergic rhinitis (Resolved) Surgical History? Hx of hernia repair (Acute) History of transurethral resection of prostate (Acute) Status post biopsy of kidney (Acute) History of left heart catheterization (Chronic) Family History? Father?? ,? age 82 CAD (coronary artery disease)Mother?? ,? Age 88 Breast cancer Social History? (Updated 08/05/20 @ 09:[address] Gregg Saini MD) Smoking Status:? Former smoker quit date: 03/22/90 pack-years: 40? second hand exposure:? No? alcohol intake:? never? substance use type:? does not use? caffeine:? Yes? what type of physical activity do you participate in:? none? frequency:? does not exercise? HPI HPI HPI: JASON TOWNSEND, is a 84 M who presents to the office today for surgical consultation regarding creation of arteriovenous predialysis fistula.? The patient is referred by Dr. Claudia Ruvalcaba his civil geotechnical engineer and a written copy of my surgical consult and recommendations will return to her.? The patient is right arm dominant.? As noted below he had bilateral extremity vein mapping suggesting diminutive bilateral upper extremity veins.? He denies any recent hospitalizations.? He has a chronic habit of scratching his right forearm in 2 different locations causing chronic nonhealing wounds.? Apparently he has done this for the majority of his life. He has had 2 previous myocardial infarctions. [facility] [address] [place] [address]. [place] [address] Saphenous Vein Mapping, Bilat 07/27/20 0902 MR#:? [id number]:[id number] Name: JASON TOWNSEND [facility] #:[id number] :? 1935? 84From: Gregg Saini MD Attending Dr: ? ? Dr. Claudia Ruvalcaba, DOStatus:? REG CLI Ordering Dr:? Claudia Ruvalcaba:? 07/27/20?? Location:CVSSex:MC Admitted:?? Reason For Study: CKD 5 Right Arm? Left Arm Right cephalic vein is compressible. ? Left cephalic vein is compressible. Right Cephalic Vein at the shoulder? Left Cephalic Vein at the shoulder measures .09 x .1 cm.? measures .13 x .15 cm. Right Cephalic Vein mid bicep measures .14 ? Left Cephalic Vein at mid bicep measures .16 x .17 cm.? x .18 cm. Right Cephalic Vein above antecub? Left Cephalic Vein above antecub measures .19 measures .18 x .2 cm.? x .22 cm. Right Cephalic Vein below antecub? Left Cephalic Vein below antecub measures .12 measures .16 x .17 cm. ? x .14 cm. Right Cephalic Vein in the forearm ? Left Cephalic Vein in the forearm measures .19 x .25 cm. ? measures .09 x .12 cm. Right Cephalic Vein at the wrist measures .19? Left Cephalic Vein at the wrist measures .05 x .21 cm. ? x .06 cm. Right basilic vein is compressible.? Left basilic vein is compressible. Right Basilic Vein mid bicep measures .28? Basilic vein at bicep measures .33 x .32 cm. x .29 cm.? Basilic vein above antecub measures .19 x .2 Right Basilic Vein above antecub measures .19? cm. x .2 cm. ? Basilic vein below antecub measures .14 x .15 Right Basilic Vein below antecub measures .05? cm. x .07 cm.? Basilic vein in the forearm measures .1 x .12 Right Basilic Vein in the forearm? cm. measures .08 x .1 cm.? Basilic vein at the wrist measures .08 x .09 Right Basilic Vein at the wrist measures .07 ? cm. x .08 cm.? Brachial art .44 x .45 cm Brachial art .47 x .46 cm? Brachial art 66.0 cm/s Brachial art 71.2 cm/s ? Radial art .26 x .28 cm. Radial art .23 x .28 cm. ? Radial art 60.8 cm/s. Radial art 68.6 cm/s. VL/Saphenous Vein Mapping, Bilat Interpretation Summary Patent and compressible bilateral upper extremity cephalic and basilic veins however dimensions as noted appear to be small to even diminutive bilaterally. ? Normal brachial artery and radial artery diameter and flow bilaterally ? Ordering Physician: Claudia Ruvalcaba Performed By: Jefe Orosco RVT ? 07/27/20 4590 Date Gregg Saini MD HPI HPI HPI: JASON TOWNSEND, is a 84 M who presents to the office today for? ROS General General: Yes weight change and fatigue; no appetite, colon cancer or breast cancer HEENT HEENT: No difficulty swallowing, eye injury, eye surgery, swollen glands or hoarseness Endo Endocrine: Yes thyroid disease; no diabetes mellitus, thyroid cancer, Hair loss, heat intolerance or cold intolerance Skin Skin: No rash or changing moles Musc Musculoskeletal: No back problems, arthritis, rheumatoid arthritis, gout or joint pain Cardio Cardiovascular: Yes heart disease, atrial fibrillation and heart attack; no murmur, pacemaker, high blood pressure, heart stent, palpitations, shortness of breat with exertion or chest pain Psych Psychiatric: Yes depression and anxiety; no hearing voices Resp Respiratory: No shortness of breath, No sleep apnea, Yes cough, Yes COPD, No asthma, Yes emphysema, No wheezing Gastro Gastrointestinal: No abdominal pain, No nausea or vomiting, No diarrhea, Yes constipation, No blood in stool, No acid reflux, No hemorrhoids, No ulcers, No gallbladder problem, No black,tarry stools Chriss Hematologic: No blood thinners, No blood disorders, No bleeding, Yes anemia, No blood clots Neuro Neurologic: Yes numbness, Yes tingling Exam Const General: cooperative, comfortable, no acute distress Nutritional Appearance: underweight Orientation: awake [facility] Head: normal to inspection Eyes General: appearance normal, both eyes and all related structures Neck Neck: normal visual inspection Chest Chest palpation & inspection: normal inspection of the chest Resp Effort & Inspection: normal respiratory effort Auscultation: clear to auscultation bilaterally Cardio Rate: other (Irregular) Rhythm: abnormal rhythm Heart Sounds: no murmurs Pulses: brachial pulses present GI Palpation: soft, no hepatosplenomegaly Skin Other: Right mid and distal radial forearm areas of self excoriation with skin breakdown and erythema Neuro Cognition: normal cognition Extrem Other: Duplex exam of the right upper arm demonstrates somewhat small but patent cephalic and basilic veins.? There appears to be adequate diameter particularly at the antecubital space for each Psych Affect: normal affect Assessment & Plan Problems 1. Chronic renal failure, stage 5? N18.5 Plan 84-year-old gentleman.? He denies having previously been on hemodialysis.? He is referred for creation of arteriovenous hemodialysis fistula.? He is left arm dominant.? He is intolerant to aspirin because it causes epistasis.? Laboratory as of July 21 demonstrates a GFR of 11 with a BUN of 80 and a creatinine of 5.18.? He had a renal ultrasound done on July 13, 2020 which was felt to be normal. I propose for him a right upper arm brachial to cephalic tributary venous hemodialysis fistula creation.? This can be accomplished with monitored incision care local anesthetic.? I have significantly cautioned the patient against further self excoriation of his right forearm.? Would like to avoid prosthetic material possible.? He and his are aware of the technique, benefit, risk, alternatives.? They have had an opportunity to ask and have questions answered and like to schedule proceed as indicated.? No guarantees of success have been offered.? They are aware that additional maintenance procedures may be required.? It is evident that he does have a seemingly patent right upper arm basilic vein as well which could be considered for future use. Appreciate the opportunity of assisting with surgical care Copy: Dr. Claudia Ruvalcaba and Dr. Iván Saini M.D., F.A.C.S. I have re-examined the patient. There are no clinical changes since date of exam.
[2020-08-20] MEDS: Cefazolin 2 GM in 0.9% Normal Saline 100 ML IV (10:55)
[2020-08-20] MEDS: Lidocaine 1% (30 ml sdv) 30 ML Vial (12:00)
[2020-08-20] MEDS: Bupivacaine Mpf 0.5% 30 ML VIAL (12:00)
[2020-08-20] MEDS: Heparin Injection (Vial) 5,000 UNIT/ML VIAL 5000 UNIT (12:00)
--- NOTE | 2020-08-20 12:31 | EX.PCM.DISCH ---
Discharge Instructions Procedure Fistula Diet Discharge Diet: Renal Diet Activity Discharge Activity: May Not Drive (for 2-3 days or while taking narcotic pain medications.), May Shower and May Take a Tub Bath (in 5 days.) Lifting Restrictions: 5 pounds Keep extremity elevated above heart level: - (Keep arm elevated above the heart level for 3 days.) Dressing / Incision Call your doctor if your incision/area has: Continuous Slow Oozing, Sudden Increased Bleeding (apply pressure and call your doctor.), Increased Pain/ Swelling, Increased Redness and Foul Smelling Discharge Call your doctor if you observe: Fever of 101 or Higher Suture Line Care: Avoid Pulling/Pushing and Avoid Pinching/Bending Cleanse incision/area with: Keep Dressing Clean & Dry Additional Dressing/Incision Instructions:: Change or remove dressing in one day. May protect with a gauze bandaid. Follow Up Care Please Follow Up With: Gregg Saini MD When: Call [phone] to make an appointment for suture removal and follow up in 1 week. Test Results: Test results from this visit will be discussed in further detail at your follow-up appointment, if applicable. Discharge Plan Admission Attending Provider: Gregg Saini Primary Care Provider: Iván Ruby Chi Discharge Orders/Prescriptions Prescriptions: No Action ibuprofen [Advil] 200 mg tablet 200 mg PO ONCE PRN (Reason: Pain) RF: 0 multivitamin Tablet 1 tab PO DAILY RF: 0 levothyroxine 75 mcg tablet 75 mcg PO DAILY RF: 0 finasteride 5 MG tablet 5 mg PO DAILY RF: 0 aspirin 81 mg tablet,delayed release (DR/EC) 81 mg PO DAILY RF: 0 budesonide-formoterol 160-4.5 mcg/actuation HFA aerosol inhaler 2 puff INHALATION BID Qty: 3 RF: 3 gabapentin [Neurontin] 600 mg tablet 600 mg PO QHS RF: 0 tamsulosin 0.4 mg capsule 0.4 mg PO DAILY RF: 0
--- NOTE | 2020-08-20 12:32 | PCM.OPRPT ---
Problems Associated Problem List Diagnoses (1) Chronic renal failure, stage 4 (severe): Report of Operation Date of Procedure: 08/20/20 Pre-Operative Diagnosis: Stage IV chronic renal insufficiency Post-Operative Diagnosis: Same Surgery/Procedure Performed:: Right upper extremity brachial to cephalic arteriovenous hemodialysis fistula creation Description of Surgical Findings:: Timeout informed consent was obtained. 84-year-old gent was taken to the operating placement table underwent monitored anesthesia care. Ancef 2 g were given intravenously. The right upper extremity was sterilely prepped and draped. 1% lidocaine mixed 50-50 with 0.5% Marcaine was used as a local anesthetic. A total of 8 cc was used. Ultrasound mapping of the course of the cephalic vein at the antecubital space had been performed and mapped preprocedure. Local was instilled. An oblique incision was made at the right antecubital space just proximally. Sharp dissection carried down through the subcutaneous tissue. Sharp and blunt dissection was used to dissect free the cephalic vein. There was evidence of multiple needle puncture sites from previous lab draws. It was dissected free. Sharp and blunt dissection was used to identify the brachial artery. The patient received 7000 units of heparin. The cephalic vein was secured distally with 2 hemoclips. The vein was carefully spatulated. A slightly oblique incision was made in the right brachial artery. AN venous to side arterial anastomosis was created with a running 7-0 Prolene. There was no tension and good approximation was achieved good hemostasis achieved. There was a good pulse thrill and bruit immediately at the completion. A piece of Surgicel was placed to assist with hemostasis. The wound was closed with a deep layer of interrupted 3-0 Vicryl. The skin edges approximated a running septic or 4-0 Monocryl. Steri-Strips Telfa OpSite dressings applied. Sponge and instrument and needle counts were reported to the surgeon to be correct. Specimens none. Drains none. Blood loss minimal. The patient had a viable hand at the completion without apparent complication and he was taken to the recovery room in satisfactory condition. Gregg Saini M.D., F.A.C.S. Type of Anesthesia: MAC/Supplemental/Local Anesthesiologist: Maciel Issa
== END 2020-08-20 14:13 | disposition home or self-care (01) ==
LOC: SDC 08:59 → AC 09:00
PROVIDERS: PCP Family Medicine Geriatric Medicine; Referring Provider Surgery; Visit Provider Surgery
PROC: (CPT 36821; principal; 2020-08-20 10:45)
DX: N18.5 Chronic kidney disease, stage 5 (principal); D63.1 Anemia in chronic kidney disease; I25.10 Atherosclerotic heart disease of native coronary artery without angina pectoris; I48.0 Paroxysmal atrial fibrillation; I49.3 Ventricular premature depolarization; I45.2 Bifascicular block; I25.2 Old myocardial infarction; J44.9 Chronic obstructive pulmonary disease, unspecified; E03.9 Hypothyroidism, unspecified; H91.92 Unspecified hearing loss, left ear; Z79.82 Long term (current) use of aspirin; Z79.899 Other long term (current) drug therapy; Z87.891 Personal history of nicotine dependence
CPT/HCPCS: 01844; 36821; 36415; 80048; 85027; 93005; J7040; J2405

== ENCOUNTER 2020-08-26 14:27 | Inpatient (IN) | payer MEDICARE, OTHER, SELFPAY ==
[2020-08-20 09:28] VITALS: BMI 23.9
[2020-08-26] VITALS (11 sets, daily range): BP systolic 127–159; BP diastolic 73–82; PULSE 82–103; RESP 17–30; TEMP 35.8–37.6; O2SAT 94–99; BMI 23.6; BMI 24.2
--- NOTE | 2020-08-26 15:59 | EX.ED.DYSGE1 ---
HPI History of Present Illness Chief Complaint: Abn Labs Detail of Chief Complaint: Low hemoglobin, fatigue, dyspnea with activity, hypersomnolence Informant: patient and spouse/S.O. Onset/Context/Timing Onset: Days Context: Gradual Onset Timing: Continuous Quality: Hemoglobin less than 7 on August 16 Location: Hematologic Current Severity: Moderate Maximum Severity: Moderate Worsened by: End-stage renal failure Relieved by: None Associated Symptoms Associated Symptoms: Previously documented Narrative Narrative: Patient is an elderly male who had a fistula placed right upper extremity. He presents because of symptomatic anemia. Denies black or maroon-colored stool. Denies blood in his urine. Has bleeding from his gums. He denies bruising easily. He states he feels fatigued, has increased sleep and dyspnea with minimal activity. He denies chest pressure or tightness. Prior similar symptoms: No Recent Illness/Hospital[facility]: [facility] Medical History Allergic rhinitis Anemia Asthma Atherosclerotic heart disease of [place] coronary artery without angina pectoris Atrial fibrillation Chest pain Chronic renal failure, stage 4 (severe) Chronic renal failure, stage 5 COPD (chronic obstructive pulmonary disease) Hearing loss, left Hearing loss, right Heartburn History of non-ST elevation myocardial infarction (NSTEMI) Hypersomnia Hypothyroidism Kidney disease Leg cramps Lymphadenopathy Myocardial infarct Paroxysmal atrial fibrillation Periodic limb movement disorder Premature ventricular contractions Purpura Shortness of breath Shortness of breath on exertion Silicosis Wears dentures Wears glasses Home Medications finasteride 5 mg PO DAILY 11/09/14 [History Last Taken 08/26/20] budesonide-formoterol HFA 160 mcg-4.5 mcg/actuation aerosol inhaler 2 puff INHALATION BID #3 device 04/30/19 [Rx Last Taken 08/26/20] levothyroxine 75 mcg tablet 75 mcg PO DAILY 03/01/20 [History Last Taken 08/24/20] gabapentin 600 mg tablet 600 mg PO QHS tablet 07/23/20 [History Last Taken 08/25/20] Allergy/AdvReac Type Severity Reaction Status Date / Time No Known Allergies Allergy Verified 08/26/20 14:31 Family History Father , age 82 CAD (coronary artery disease) Mother , Age 88 Breast cancer Surgical History History of cataract surgery History of left heart catheterization History of transurethral resection of prostate Hx of hernia repair Status post biopsy of kidney Social History Smoking Status: Former smoker quit date: 03/22/90 pack-years: 40 second hand exposure: No alcohol intake: never substance use type: does not use caffeine: Yes what type of physical activity do you participate in: none frequency: does not exercise ROS ROS ED Constitutional Constitutional ED: Denies chills, fever(s), subjective or sweats Eyes Eyes: Denies blurry vision, change in vision or diplopia ENT ENT ED: Denies ear pain, rhinorrhea or sore throat Cardiovascular Cardiovascular: Denies chest pain, orthopnea or palpitations Respiratory/Chest Respiratory/Chest: Reports dyspnea and dyspnea on exertion; Denies cough, orthopnea or sputum Gastrointestinal Gastrointestinal: Denies abdominal pain, constipation, diarrhea, melena, nausea or vomiting Genitourinary Genitourinary ED: Reports other Details: Per decreased urine output. ; Denies dysuria, hematuria or urinary frequency Musculoskeletal Musculoskeletal: Denies arthralgias, back pain, myalgias or neck pain Integumentary Denies abscess or rash Neurologic Neurologic: Denies headache(s) or weakness Psychiatric Psychiatric: Denies anxiety or depression Endocrine Endocrinology: Denies polydipsia, polyphagia or polyuria Allergic/Immunologic Allergic/Immunologic ED: Denies urticaria EXAM Physical Exam Const Vital Signs: 08/26/20 14:30 08/26/20 16:30 08/26/20 16:31 Temperature 96.4 F L Temperature Source Temporal Pulse Rate 90 82 Respiratory Rate 17 28 H Respiratory Pattern Tachypnea Blood Pressure 127/74 H 140/81 H Blood Pressure Mean 91 100 Blood Pressure Source Blood Pressure Position Blood Pressure Location Pulse Ox 99 Oxygen Delivery Method Room Air 08/26/20 18:01 08/26/20 18:17 08/26/20 19:17 Temperature 99.4 F H 99.2 F H 99.6 F H Temperature Source Oral Oral Oral Pulse Rate 100 101 H 99 Respiratory Rate 24 H 26 H 28 H Respiratory Pattern Blood Pressure 149/77 H 130/73 H 140/74 H Blood Pressure Mean 101 92 96 Blood Pressure Source Monitor Monitor Monitor Blood Pressure Position Sitting Sitting Sitting Blood Pressure Location Left Arm Left Arm Left Arm Pulse Ox 97 97 97 Oxygen Delivery Method Room Air Room Air Room Air Positive well nourished and well developed General Appearance ED: well developed, NAD, pallor and other Decreased mental status ; Negative for cyanotic or diaphoretic HEENT Reports TM's clear and moist mucous membranes Negative for trauma or tenderness Tympanic Membrane ED: Yes TM's clear Eyes PERRL and EOMs intact bilaterally General Eye ED: Yes pale conjunctiva and scleral icterus Neck no lymphadenopathy, supple and no JVD General: Negative for tenderness Chest Wall inspection of chest normal and palpation of chest normal Resp normal respiratory effort and clear to auscultation bilaterally Cardio regular rate, regular rhythm, S1 normal heart sound, S2 normal heart sound and no murmurs GI normal to inspection, nondistended, normoactive bowel sounds Back/Spine no CVA tenderness Cervical Spine: Negative for cervical spine tenderness Thoracic Spine / Upper Back: Negative for paraspinal muscle tenderness Lumbar Spine / Lower Back: Negative for lumbar spinal tenderness Extremity normal to inspection General Extremety ED: Negative for tenderness Neuro oriented x3, CN's II-XII intact bilaterally and no sensory deficits noted Sensorium / Orientation: Negative for alert Motor Exam: strength 5/5 throughout Psych Psych Narrative: Slow psychomotor skills. Affect is flat. Skin no rashes or lesions noted General Skin Exam: jaundice and pallor MDM MDM MDM Narrative Medical decision making narrative: Clinically patient is anemic. Suspect hemoglobin is above 6 since he still has erythema the creases palms. His conjunctive is very pale and he is pale. [id number] the vermilion portion of his lips are pale as well as his gums. He was typed and crossed for 1 unit of blood. Hemoglobin is repeated since last hemoglobin was greater than a week ago. Case was discussed with Dr. Claudia Ruvalcaba at 1933. She requested Kayexalate, amp of bicarb and placement of Alvarado. Lab Data Attestation: I reviewed the patient's lab results. Labs: Laboratory Results - last 24 hr 08/26/20 08/26/20 08/26/20 15:40 15:40 15:40 WBC 3.5 L RBC 2.16 L Hgb 6.4 L Hct 20.2 L MCV 93.5 MCH 29.6 MCHC 31.7 L RDW Std Deviation 46.1 H RDW Coeff of Sangeeta 13.5 Plt Count 248 MPV 11.1 Sodium 136 Potassium 6.0 H* Chloride 110 H Carbon Dioxide 18.0 L Anion Gap 8 BUN 124 H* Creatinine 9.30 H* Estim Creat Clear Calc 5.92 Est GFR (MDRD) Af Amer 7 L Est GFR (MDRD) Non-Af 6 L BUN/Creatinine Ratio 13.3 Glucose 121 H Calcium 7.8 L Blood Type O NEGATIVE Antibody Screen NEGATIVE Crossmatch See Detail Since patient's hemoglobin is less than 7 he will receive 1 unit of blood. Patient's creatinine has continued to rise. With hyperkalemia and worsening renal function, creatinine 9.3 and BUN 124 will call hospitalist for admission and possible emergent dialysis. He was not treated with albuterol, D5 and insulin or bicarb since he has no EKG changes. Since there is controversy regarding use of Kayexalate he did not receive Kayexalate in the emergency department either. EKG Initial EKG: Interpretation: Sinus Rhythm (Normal sinus rhythm with a ventricular rate of 94. NC interval is 208 ms. QRS duration 148 ms and has configuration of a right bundle branch block and a left anterior fascicular block. QT interval is 392 ms. There are no peaked T waves.) Critical Care Time Critical care time (excluding procedures): 30-74 minutes (Care time 32 minutes, included obtaining history, additional history per spouse, documentation, physical examination, review of laboratory results, discussion with admitting physician and building consultant. Initiating treatment in the emergency department.), Discussing w/Patient &/or Family/Dispatch Machine Runner, Discussing w/Consultants and Arranging Admission or Transfer Discharge Plan Dx/Rx/DC Orders Clinical Impression: Symptomatic anemia, Acute renal failure superimposed on stage 5 chronic kidney disease, not on chronic dialysis, Acute hyperkalemia Disposition Disposition: [facility]
[2020-08-26 16:05] LABS: Hematocrit 20.2 % (40-54); Hemoglobin 6.4 g/dL (13.0-16.5); Mean Corp Hgb Conc 31.7 g/dL (32-36); Mean Corpuscular Hgb 29.6 pg (27.0-32.0); Mean Corpuscular Volume 93.5 fL (80-94); Mean Platelet Vol. 11.1 fl (6.2-12.0); Platelet Count 248 K/mm3 (150-450); RBC Distribution Width CV 13.5 % (11.6-14.6); RBC Distribution Width SD 46.1 fl (35.1-43.9); Red Blood Count 2.16 M/mm3 (4.6-6.2); White Blood Count 3.5 K/mm3 (4.4-11.0)
[2020-08-26 16:31] LABS: Anion Gap 8 (5-15); BUN 124 mg/dL (7-18); BUN/Creat Ratio 13.3 RATIO (10-20); Calcium,Total 7.8 mg/dL (8.5-10.1); Chloride 110 mmol/L (98-107); EST Glomerular Filtration Rate 6 mL/min (>60); Est Glom Filt Rate - Afr Amer 7 mL/min (>60); Estimated Creatinine Clearance 5.92 ml/min; Glucose 121 mg/dL (74-106); Sodium Level 136 mmol/L (136-145)
--- NOTE | 2020-08-26 16:31 | EKG12_ITS ---
Test Reason : Blood Pressure : / mmHG Vent. Rate : 094 BPM Atrial Rate : 094 BPM P-R Int : 208 ms QRS Dur : 148 ms QT Int : 392 ms P-R-T Axes : 051 -63 039 degrees QTc Int : 490 ms Normal sinus rhythm Right bundle branch block Left anterior fascicular block Bifascicular block Abnormal ECG Confirmed by AMBER GATES, JACK ([id number]), make up editor ALEXEY FLOREZ ([id number]) on 08/30/2020 2:54:24 PM Referred By: BRUCE Confirmed By:JACK CLARK MD
[2020-08-26] MEDS: Sodium Polystyrene Sulfonate 15 GM/60 ML UDC 30 GM PO (20:13)
[2020-08-26] MEDS: Sodium Bicarbonate 8.4% 50 ML Syringe 50 MEQ IV (20:14)
--- NOTE | 2020-08-26 20:18 | ED.RN ---
Pt refused catheter
[2020-08-26 20:19] LABS: Ferritin 333 ng/mL (26-388); Iron 37 ug/dL (65-175); Iron Binding Capacity,Total 219 ug/dL (250-450); PERCENT IRON SATURATION 16.9 % (15.0-55.0)
--- NOTE | 2020-08-26 20:49 | HP.PCM.HOS_ITS ---
[facility] - General General Date of Admission: 08/26/20 Chief Complaint: sob [facility] Narrative JASON TOWNSEND, is a 84 M with a significant history of COPD; and end-stage renal disease on dialysis with progressively worsening shortness of breath that started about 2 weeks ago. His shortness of breath is at rest and it increases with exertion. Also he has a productive cough. He is unable to describe the color of his sputum by stated is not clear. At the emergency department his potassium was high. Dialysis access shunt was placed about a week ago. Patient reported that he was at the ED to check his dialysis access shunts. [facility] Medical History Allergic rhinitis Anemia Asthma Atherosclerotic heart disease of [place] coronary artery without angina pectoris Atrial fibrillation Chest pain Chronic renal failure, stage 4 (severe) Chronic renal failure, stage 5 COPD (chronic obstructive pulmonary disease) Hearing loss, left Hearing loss, right Heartburn History of non-ST elevation myocardial infarction (NSTEMI) Hypersomnia Hypothyroidism Kidney disease Leg cramps Lymphadenopathy Myocardial infarct Paroxysmal atrial fibrillation Periodic limb movement disorder Premature ventricular contractions Purpura Shortness of breath Shortness of breath on exertion Silicosis Wears dentures Wears glasses Home Medications finasteride 5 mg PO DAILY 11/09/14 [History Last Taken 08/26/20] budesonide-formoterol HFA 160 mcg-4.5 mcg/actuation aerosol inhaler 2 puff INHALATION BID #3 device 04/30/19 [Rx Last Taken 08/26/20] levothyroxine 75 mcg tablet 75 mcg PO DAILY 03/01/20 [History Last Taken 08/24/20] gabapentin 600 mg tablet 600 mg PO QHS tablet 07/23/20 [History Last Taken 08/25/20] Allergy/AdvReac Type Severity Reaction Status Date / Time No Known Allergies Allergy Verified 08/26/20 14:31 Family History Father , age 82 CAD (coronary artery disease) Mother , Age 88 Breast cancer Surgical History History of cataract surgery History of left heart catheterization History of transurethral resection of prostate Hx of hernia repair Status post biopsy of kidney Social History Smoking Status: Former smoker quit date: 03/22/90 pack-years: 40 second hand exposure: No alcohol intake: never substance use type: does not use caffeine: Yes what type of physical activity do you participate in: none frequency: does not exercise ROS ROS Narrative 12 point review of system is negative except as stated in the HPI. Vital Signs Vital Signs Vital Signs: 08/26/20 14:30 08/26/20 16:30 08/26/20 16:31 Temperature 96.4 F L Temperature Source Temporal Pulse Rate 90 82 Respiratory Rate 17 28 H Respiratory Pattern Tachypnea Blood Pressure 127/74 H 140/81 H Blood Pressure Mean 91 100 Blood Pressure Source Blood Pressure Position Blood Pressure Location Pulse Ox 99 Oxygen Delivery Method Room Air 08/26/20 18:01 08/26/20 18:17 08/26/20 19:17 Temperature 99.4 F H 99.2 F H 99.6 F H Temperature Source Oral Oral Oral Pulse Rate 100 101 H 99 Respiratory Rate 24 H 26 H 28 H Respiratory Pattern Blood Pressure 149/77 H 130/73 H 140/74 H Blood Pressure Mean 101 92 96 Blood Pressure Source Monitor Monitor Monitor Blood Pressure Position Sitting Sitting Sitting Blood Pressure Location Left Arm Left Arm Left Arm Pulse Ox 97 97 97 Oxygen Delivery Method Room Air Room Air Room Air 08/26/20 20:08 08/26/20 20:09 Temperature 98.9 F 98.9 F Temperature Source Oral Oral Pulse Rate 102 H 103 H Respiratory Rate 30 H 30 H Respiratory Pattern Blood Pressure 147/80 H 147/80 H Blood Pressure Mean 102 102 Blood Pressure Source Monitor Blood Pressure Position Sitting Blood Pressure Location Left Arm Pulse Ox 96 96 Oxygen Delivery Method Room Air Room Air Physical Exam Narrative Alert and oriented x3 Nontraumatic; normocephalic Tachypnea lung clear to auscultate Tachycardia heart sounds S1-S2. No murmur, gallop or rubs. Abdomen bowel sounds present soft, nontender nondistended Extremity: Right with dialysis access device with bruits. Extremities without edema cyanosis or clubbing. Lab / Micro Data Result Diagrams: 08/26/20 15:40 08/26/20 15:40 Labs: Laboratory Results - last 24 hr 08/26/20 08/26/20 08/26/20 15:40 15:40 15:40 WBC 3.5 L RBC 2.16 L Hgb 6.4 L Hct 20.2 L MCV 93.5 MCH 29.6 MCHC 31.7 L RDW Std Deviation 46.1 H RDW Coeff of Sangeeta 13.5 Plt Count 248 MPV 11.1 Sodium 136 Potassium 6.0 H* Chloride 110 H Carbon Dioxide 18.0 L Anion Gap 8 BUN 124 H* Creatinine 9.30 H* Estim Creat Clear Calc 5.92 Est GFR (MDRD) Af Amer 7 L Est GFR (MDRD) Non-Af 6 L BUN/Creatinine Ratio 13.3 Glucose 121 H Calcium 7.8 L Iron TIBC Iron Saturation Ferritin Blood Type O NEGATIVE Antibody Screen NEGATIVE Crossmatch See Detail 08/26/20 19:38 WBC RBC Hgb Hct MCV MCH MCHC RDW Std Deviation RDW Coeff of Sangeeta Plt Count MPV Sodium Potassium Chloride Carbon Dioxide Anion Gap BUN Creatinine Estim Creat Clear Calc Est GFR (MDRD) Af Amer Est GFR (MDRD) Non-Af BUN/Creatinine Ratio Glucose Calcium Iron 37 L TIBC 219 L Iron Saturation 16.9 Ferritin 333 Blood Type Antibody Screen Crossmatch Assessment & Plan Assessment/Plan (1) Symptomatic anemia: (2) COPD exacerbation: (3) GUILLE (acute kidney injury): PLAN: Symptomatic anemia on chronic anemia. Review emergent department labs showed. Review of past record showed a hemoglobin 08/16/2020 was 6.7. Baseline hemoglobin is 10-11. 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 One units of packed red blood cells was ordered to be transfused at the emergen cy department. Check H&H 1 hour after transfusion. Check reticulocytes counts. Check vitamin B12 and folate. Check ferritin and iron studies. Occult stools ordered COPD exacerbation Mucinex as needed ordered. DuoNeb [id number] and as needed albuterol ordered. Solu-Medrol IV [id number]. Hyperkalemia Discussed emergent department doctor to notify nephrology. Trend BMP Received bicarbonate and Kayexalate at the emergency department and Alvarado catheter was placed. GUILLE on end-stage renal disease Review of emergency department labs showed bicarbonate of 18. Creatinine of 9.3. His creatinine on 08/16/2020 was 7.46. Estimated GFR is 6. The creatinine clearance is 5.92. Renal diet ordred Nephrology consult DVT prophylaxis SCD Visit Charges Inpatient E&M: 93912 Init Hosp L3
[2020-08-26 21:54] LABS: Vitamin B12 260 pg/mL (211-911)
[2020-08-26] MEDS: Gabapentin 300 MG Capsule PO (22:19)
[2020-08-26] MEDS: 0.9% Saline Lock 10 ML Syringe IV ×2 (22:21→22:55)
[2020-08-26 22:34] LABS: Hematocrit 21.8 % (40-54); Hemoglobin 6.8 g/dL (13.0-16.5)
[2020-08-26] MEDS: Furosemide 40 MG/4 ML Vial IV (22:55)
[2020-08-26 23:23] LABS: Anion Gap 11 (5-15); BUN 124 mg/dL (7-18); BUN/Creat Ratio 13.5 RATIO (10-20); Calcium,Total 7.6 mg/dL (8.5-10.1); Chloride 111 mmol/L (98-107); Creatinine, Serum 9.18 mg/dL (0.70-1.30); EST Glomerular Filtration Rate 6 mL/min (>60); Est Glom Filt Rate - Afr Amer 7 mL/min (>60); Glucose 119 mg/dL (74-106); Potassium 5.5 mmol/L (3.5-5.1); Sodium Level 140 mmol/L (136-145)
[2020-08-27] VITALS (23 sets, daily range): BP systolic 109–142; BP diastolic 66–85; PULSE 68–99; RESP 14–19; TEMP 36–37.2; O2SAT 93–99; BMI 24.2
[2020-08-27] MEDS: 0.9% Saline Lock 10 ML Syringe IV ×2 (03:31→05:15)
[2020-08-27 05:01] LABS: Absolute Lymphocyte Count 0.23 X10^3/uL (0.83-4.51); Absolute Neutrophil Count 2.7 X10^3/uL (2.0-7.7); Basophil# 0.01 X10^3/uL; Basophil% 0.3 % (0-1); Hematocrit 23.1 % (40-54); Hemoglobin 7.5 g/dL (13.0-16.5); Lymphocyte # 0.23 X10^3/ul (0.83-4.51); Lymphocyte % 7.6 % (19-41); Mean Corp Hgb Conc 32.5 g/dL (32-36); Mean Corpuscular Hgb 29.2 pg (27.0-32.0); Mean Corpuscular Volume 89.9 fL (80-94); Monocyte% 3.3 % (0-10); NRBC Flagged by Analyzer 0 % (0-5); Neutrophil # 2.68 X10^3/uL (2.7-7.7); Neutrophil % 88.1 % (47-70); POSITIVE DIFFERENTIAL YES; Platelet Count 209 K/mm3 (150-450); RBC Distribution Width CV 13.6 % (11.6-14.6); RBC Distribution Width SD 44.7 fl (35.1-43.9); RET-HE 32.3 pg (30-35); Red Blood Count 2.57 M/mm3 (4.6-6.2); Reticulocyte Count 0.72 % (0.5-1.5)
[2020-08-27 05:04] LABS: Differential Indicated SCAN CRITERIA MET
[2020-08-27] MEDS: Levothyroxine 75 MCG Tablet PO (05:13)
[2020-08-27 06:16] LABS: Differential Comment SCANNED
[2020-08-27] MEDS: Ipratropium/Albuterol Sulfate 3 ML AMPUL.NEB INHALATION ×3 (06:50→18:57)
[2020-08-27 09:33] LABS: International Normalized Ratio 1.2; Prothrombin Time (Protime)PT. 14.6 SECONDS (11.7-14.9)
[2020-08-27 09:34] LABS: Partial Thromboplast Time 31.1 Seconds (24.1-36.2)
--- NOTE | 2020-08-27 10:01 | NURSING ---
patient prep for tunneled cath placement. Blood consent signed. OR checklist complete. Patient alert and oriented, in good spirits. arriving at 10:00. No needs at this time.
--- NOTE | 2020-08-27 10:05 | CASEMGMT ---
JASON COPPOLA Assessment: Face to Face with pt for initial transition planning/care coordination assessment. JASON COPPOLA introduced self and role at [facility], pt voices understanding and consents to assessment. Pt is A/O x4 and answers all questions appropriately at this time. Pt lying in bed in no distress. Care providers, pharmacy, and demographics verified/updated. Admitting Dx: symptomatic anemia, hyperkalemia PCP: Tung Byrd [facility]acy: [facility] Insurance: [facility], [facility] Prescription Benefit: yes LW/HPOA: Pt reports he has a LW/DPOA. He is aware that it is not on file at [facility] and pt may bring in at any time. Pt states his DPOA is his , Fozia. LNOK: Fozia Childs, ; Jennifer Galindo dtr Living Arrangements: Pt lives with in a single story house with 3 steps to enter with rail. Pt reports being I at home with ADL's and denies concerns at home. Transportation: Pt states he drives self and denies concerns with transportation. DME/HHC/SNF: Pt has a cane and walker at home but does not use. Pt has a built in shower seat as well. Pt denies any previous HHC or SNF stays. Pt states no concerns with going home at time of dc. Pt states no further concerns/needs. CM to follow therapy. Advised pt to ask CM if any further question/concerns/needs arise, voices understanding. Pt Goal: Home Plan: Home
--- NOTE | 2020-08-27 11:18 | NURSING ---
Patient off unit for surgical procedure. with patient.
--- NOTE | 2020-08-27 11:22 | EX.PCM.CON.S ---
Assessment & Plan Assessment/Plan (1) GUILLE (acute kidney injury): PLAN: I have recommended the patient a right internal jugular tunneled dialysis catheter placement. He is aware of the technique, benefit, risks, alternatives. He has had an opportunity to ask and have questions answered. We will proceed urgently as noted. His right upper arm AV fistula albeit only 1 week old seems to be maturing very well at this point. I anticipate that it will be a good future access device. Gregg Saini M.D., F.A.C.S. HPI Consult Data Date of Consult: 08/27/20 HPI Narrative HPI Narrative: JASON TOWNSEND, is a 84 M who presents with shortness of breath and anemia. I received a phone call this morning from Dr. Claudia Ruvalcaba requesting urgent placement of tunneled dialysis catheters. It is of note that previously we were asked to create a fistula and on August 20, 2020 I performed a right upper arm brachiocephalic AV fistula creation. That actually is proceeding quite well. It is deemed however that he requires emergency dialysis at this time. As of this morning his white blood cell count is 3000 with a hemoglobin of 7.5 hematocrit 23.1 platelet count 209,000. He did receive a unit of blood. Coags are normal. BUN is 124 creatinine 9.18 [facility] Medical History Allergic rhinitis Anemia Asthma Atherosclerotic heart disease of [place] coronary artery without angina pectoris Atrial fibrillation Chest pain Chronic renal failure, stage 4 (severe) Chronic renal failure, stage 5 COPD (chronic obstructive pulmonary disease) Hearing loss, left Hearing loss, right Heartburn History of non-ST elevation myocardial infarction (NSTEMI) Hypersomnia Hypothyroidism Kidney disease Leg cramps Lymphadenopathy Myocardial infarct Paroxysmal atrial fibrillation Periodic limb movement disorder Premature ventricular contractions Purpura Shortness of breath Shortness of breath on exertion Silicosis Wears dentures Wears glasses Home Medications finasteride 5 mg PO DAILY 11/09/14 [History Last Taken 08/26/20] budesonide-formoterol HFA 160 mcg-4.5 mcg/actuation aerosol inhaler 2 puff INHALATION BID #3 device 04/30/19 [Rx Last Taken 08/26/20] levothyroxine 75 mcg tablet 75 mcg PO DAILY 03/01/20 [History Last Taken 08/24/20] gabapentin 600 mg tablet 600 mg PO QHS tablet 07/23/20 [History Last Taken 08/25/20] Allergy/AdvReac Type Severity Reaction Status Date / Time No Known Allergies Allergy Verified 08/26/20 14:31 Family History Father , age 82 CAD (coronary artery disease) Mother , Age 88 Breast cancer Surgical History History of cataract surgery History of left heart catheterization History of transurethral resection of prostate Hx of hernia repair Status post biopsy of kidney Social History Smoking Status: Former smoker quit date: 03/22/90 pack-years: 40 second hand exposure: No alcohol intake: never substance use type: does not use caffeine: Yes what type of physical activity do you participate in: none frequency: does not exercise Physical Exam Const alert HEENT normocephalic Neck supple and no JVD Extremity Extremity Narrative: Right upper extremity has a healing oblique incision just proximal to antecubital space. He has a right upper arm brachiocephalic AV fistula that does have a pulse and thrill and bruit. There is an appropriate amount of ecchymosis. Lab / Micro Data Result Diagrams: 08/27/20 04:35 08/26/20 22:18 Labs: Laboratory Results - last 24 hr 08/26/20 08/26/20 08/26/20 15:40 15:40 15:40 WBC 3.5 L RBC 2.16 L Hgb 6.4 L Hct 20.2 L MCV 93.5 MCH 29.6 MCHC 31.7 L RDW Std Deviation 46.1 H RDW Coeff of Sangeeta 13.5 Plt Count 248 MPV 11.1 Immature Gran % (Auto) Neut % (Auto) Lymph % (Auto) [place] % (Auto) Eos % (Auto) Baso % (Auto) Absolute Neuts (auto) Absolute Lymphs (auto) Nucleated RBC % Differential Comment Diff Path Review Retic Count Immature Retic Fraction Retic Hgb Equivalent PT INR APTT Sodium 136 Potassium 6.0 H* Chloride 110 H Carbon Dioxide 18.0 L Anion Gap 8 BUN 124 H* Creatinine 9.30 H* Estim Creat Clear Calc 5.92 Est GFR (MDRD) Af Amer 7 L Est GFR (MDRD) Non-Af 6 L BUN/Creatinine Ratio 13.3 Glucose 121 H Calcium 7.8 L Iron TIBC Iron Saturation Ferritin Vitamin B12 Folate Blood Type O NEGATIVE Antibody Screen NEGATIVE Crossmatch See Detail 08/26/20 08/26/20 08/26/20 15:40 15:40 15:40 WBC RBC Hgb Hct MCV MCH MCHC RDW Std Deviation RDW Coeff of Sangeeta Plt Count MPV Immature Gran % (Auto) Neut % (Auto) Lymph % (Auto) [place] % (Auto) Eos % (Auto) Baso % (Auto) Absolute Neuts (auto) Absolute Lymphs (auto) Nucleated RBC % Differential Comment Diff Path Review Retic Count Immature Retic Fraction Retic Hgb Equivalent PT INR APTT Sodium Potassium Chloride Carbon Dioxide Anion Gap BUN Creatinine Estim Creat Clear Calc Est GFR (MDRD) Af Amer Est GFR (MDRD) Non-Af BUN/Creatinine Ratio Glucose Calcium Iron 37 L TIBC 219 L Iron Saturation 16.9 Ferritin 333 Vitamin B12 260 Folate 35.60 Blood Type Antibody Screen Crossmatch 08/26/20 08/26/20 08/26/20 15:40 22:18 22:18 WBC RBC Hgb 6.8 L Hct 21.8 L MCV MCH MCHC RDW Std Deviation RDW Coeff of Sangeeta Plt Count MPV Immature Gran % (Auto) Neut % (Auto) Lymph % (Auto) [place] % (Auto) Eos % (Auto) Baso % (Auto) Absolute Neuts (auto) Absolute Lymphs (auto) Nucleated RBC % Differential Comment Diff Path Review Retic Count Immature Retic Fraction Retic Hgb Equivalent PT INR APTT Sodium 140 Potassium 5.5 H Chloride 111 H Carbon Dioxide 18.0 L Anion Gap 11 BUN 124 H* Creatinine 9.18 H* Estim Creat Clear Calc 6.00 Est GFR (MDRD) Af Amer 7 L Est GFR (MDRD) Non-Af 6 L BUN/Creatinine Ratio 13.5 Glucose 119 H Calcium 7.6 L Iron TIBC Iron Saturation Ferritin Vitamin B12 Folate Blood Type Antibody Screen Crossmatch See Detail 08/27/20 08/27/20 04:35 08:40 WBC 3.0 L RBC 2.57 L Hgb 7.5 L Hct 23.1 L MCV 89.9 MCH 29.2 MCHC 32.5 RDW Std Deviation 44.7 H RDW Coeff of Sangeeta 13.6 Plt Count 209 MPV 11.0 Immature Gran % (Auto) 0.700 Neut % (Auto) 88.1 H Lymph % (Auto) 7.6 L [place] % (Auto) 3.3 Eos % (Auto) 0.0 Baso % (Auto) 0.3 Absolute Neuts (auto) 2.7 Absolute Lymphs (auto) 0.23 L Nucleated RBC % 0 Differential Comment SCANNED Diff Path Review May foll Retic Count 0.72 Immature Retic Fraction 6.30 Retic Hgb Equivalent 32.3 PT 14.6 INR 1.2 APTT 31.1 Sodium Potassium Chloride Carbon Dioxide Anion Gap BUN Creatinine Estim Creat Clear Calc Est GFR (MDRD) Af Amer Est GFR (MDRD) Non-Af BUN/Creatinine Ratio Glucose Calcium Iron TIBC Iron Saturation Ferritin Vitamin B12 Folate Blood Type Antibody Screen Crossmatch
[2020-08-27] MEDS: Cefazolin 2 GM in 0.9% Normal Saline 100 ML IV (11:38)
[2020-08-27] MEDS: Lidocaine 1% (30 ml sdv) 30 ML Vial (12:00)
[2020-08-27] MEDS: Bupivacaine Mpf 0.5% 30 ML VIAL (12:00)
[2020-08-27] MEDS: Heparin 10,000 UNITS/10 ML Vial 10000 UNITS (12:06)
--- NOTE | 2020-08-27 12:09 | OP.PCM_ITS ---
Problems Associated Problem List Diagnoses (1) GUILLE (acute kidney injury): Report of Operation Date of Procedure: 08/27/20 Pre-Operative Diagnosis: Acute kidney injury in need of hemodialysis catheter placement Post-Operative Diagnosis: Same Surgery/Procedure Performed:: Right internal jugular 19 cm precurved palindrome catheter placement. Reference [id number] Lot #[id number] Description of Surgical Findings:: Timeout and informed consent was obtained. 84-year-old gentleman was taken to the operating placed on the table underwent monitored anesthesia care Ancef 2 g were given intravenously the right neck was prepped with Betadine under ultrasound guidance 1% lidocaine mixed 50-50 with 0.5% Marcaine was used as a local anesthetic. Throughout the procedure a total of 20 cc was used. Local was instilled. Then a micropuncture needle under ultrasound guidance was advanced into the right internal jugular vein followed by Seldinger wire. Local was instilled down upon the right anterior chest wall. The 19 cm palindrome catheter was tunneled from the chest to the neck site. Micropuncture sheath was placed. Fluoroscopy demonstrated good positioning. 035 J-wire was inserted. Serial dilatation was performed. The sheath dilator was inserted. The catheter was advanced through the sheath. The sheath was split the catheter was positioned in a very nice curvature letter fashion with the tip in the SVC. The cath was secured to skin with 3-0 nylon. The neck site was closed with an operative 5-0 Vicryl subdermal stitch. Steri- Strip Telfa OpSite dressing applied. Silver impregnated dressing applied at the exit site followed by OpSite dressing. The patient was taken to the recovery room in satisfactory addition without apparent complication. Stat portable chest x-ray is pending. No apparent complication. Specimens none. Drains none. Blood loss minimal. Gregg Saini M.D., F.A.C.S. Type of Anesthesia: Local and MAC Anesthesiologist: Jignesh Parry
--- NOTE | 2020-08-27 12:26 | RAD_ITS ---
STUDY: X-RAY CHEST REASON FOR EXAM: Male, 84 years old. Dialysis catheter placement. TECHNIQUE: Single AP portable view of the chest. COMPARISON: Comparison is made with prior study dated 11/09/2014. FINDINGS: A right sided dialysis catheter has been placed. The tip is at the junction of the superior vena cava and right atrium. EKG electrodes are seen. Mild degree of vascular congestion. There is no demonstrated pleural abnormality. There is borderline cardiomegaly. Normal mediastinum and yasir. Normal visualized pulmonary arteries. There is atherosclerotic calcification of the aortic arch with tortuosity. There are diffuse degenerative changes of the visualized thoracic spine. There is degenerative osteoarthritis of the bilateral shoulders. There is no demonstrated abnormality of the visualized soft tissue structures of the upper abdomen. RAD/CXR for Line Placement IMPRESSION: The tip of the right-sided dialysis catheter is at the junction of the superior vena cava and right atrium. Borderline cardiomegaly. Mild degree of vascular congestion. Electronically Signed: Wilberto Jimenez MD at 13:01 EDT , Service support ,
--- NOTE | 2020-08-27 14:16 | CON.PCM.RE_ITS ---
Assessment & Plan Assessment/Plan (1) ESRD (end stage renal disease): PLAN: initiate dialysis with tunneled catheter today and tomorrow. 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 (2) AV fistula: PLAN: creation 08/20/20 (3) Acute hyperkalemia: PLAN: treat medically and with dialysis, follow low k diet, eating bananas at home (4) COPD (chronic obstructive pulmonary disease): QUALIFIERS: COPD type: unspecified COPD Qualified Code(s): J44.9 - Chronic obstructive pulmonary disease, unspecified PLAN: on steroids (5) Paroxysmal atrial fibrillation: (6) Iron deficiency anemia: PLAN: iv iron load on dialysis HPI Consult Data Date of Consult: 08/28/20 HPI Narrative Reason for Consultation: CkD STAGE 5, HYPERKALEMIA HPI Narrative: JASON TOWNSEND, is a 84 M who presents with increased shortness of breath with productive cough. He is treated with iv steroids. Breathing improved. Underwent AVF placement on 08/20/20. BUN 124 Cr 9.18. Potassium elevated at 6 on admit. Eating bananas at home. He had tunneled dialysis catheter placed today to start dialysis today. He will need placement at chronic center prior to discharge. Hgb low at 7.5g after blood transfusion. Denied bloody stools. Iron levels low. [facility] Medical History (Updated 08/27/20 @ 14:[address] Claudia Ruvalcaba, ) Allergic rhinitis Anemia Asthma Atherosclerotic heart disease of [place] coronary artery without angina pectoris Atrial fibrillation AVF (arteriovenous fistula) Chest pain Chronic renal failure, stage 4 (severe) Chronic renal failure, stage 5 COPD (chronic obstructive pulmonary disease) Hearing loss, left Hearing loss, right Heartburn History of non-ST elevation myocardial infarction (NSTEMI) Hypersomnia Hypothyroidism Kidney disease Leg cramps Lymphadenopathy Myocardial infarct Paroxysmal atrial fibrillation Periodic limb movement disorder Premature ventricular contractions [place] Shortness of breath Shortness of breath on exertion Silicosis Wears dentures Wears glasses Home Medications finasteride 5 mg PO DAILY 11/09/14 [History Last Taken 08/26/20] budesonide-formoterol HFA 160 mcg-4.5 mcg/actuation aerosol inhaler 2 puff INHALATION BID #3 device 04/30/19 [Rx Last Taken 08/26/20] levothyroxine 75 mcg tablet 75 mcg PO DAILY 03/01/20 [History Last Taken 08/24/20] gabapentin 600 mg tablet 600 mg PO QHS tablet 07/23/20 [History Last Taken 08/25/20] Allergy/AdvReac Type Severity Reaction Status Date / Time No Known Allergies Allergy Verified 08/26/20 14:31 Family History Father , age 82 CAD (coronary artery disease) Mother , Age 88 Breast cancer Surgical History (Updated 08/28/20 @ 10:[address] Claudia Ruvalcaba DO) AV fistula History of cataract surgery History of left heart catheterization History of transurethral resection of prostate Hx of hernia repair Status post biopsy of kidney Social History Smoking Status: Former smoker quit date: 03/22/90 pack-years: 40 second hand exposure: No alcohol intake: never substance use type: does not use caffeine: Yes what type of physical activity do you participate in: none frequency: does not exercise ROS Review of Systems ROS Unobtainable: other Details: hx obtained from at bedside. Pt poor historian Constitutional Constitutional: Reports weakness; Denies chills or fever(s) Eyes Eyes: Denies blurry vision Cardiovascular Cardiovascular: Reports dyspnea on exertion; Denies chest pain Respiratory/Chest Respiratory/Chest: Reports productive cough and other Gastrointestinal Gastrointestinal: Denies nausea or vomiting Genitourinary Genitourinary: Reports oliguria Musculoskeletal Musculoskeletal: Reports other Details: no edema Integumentary Integumentary: Reports other Details: mild erythema over access arm from AVF Neurologic Neurologic: Reports weakness; Denies headache(s), seizures or tremor(s) Psychiatric Psychiatric: Denies anxiety or depression Hematologic/Lymphatic Hematologic/Lymphatic: Reports anemia Physical Exam Const alert and oriented x3 HEENT normocephalic Resp Effort and Inspection: Negative for respiratory distress Auscultation: rhonchi Cardio no rub Rhythm: abnormal rhythm irregularly irregular GI non-tender and non-distended Auscultation: normoactive bowel sounds Palpation: soft Extremity Extremity Narrative: RUAF with thrill and bruit, mild swelling General Extremity: AV fistula; Negative for edema Skin no rashes or lesions noted Neuro Sensorium / Orientation: awake and alert Psych cooperative Lab / Micro Data Result Diagrams: 08/28/20 05:28 08/28/20 05:28 Labs: Laboratory Results - last 24 hr 08/26/20 08/26/20 08/26/20 15:40 15:40 15:40 WBC 3.5 L RBC 2.16 L Hgb 6.4 L Hct 20.2 L MCV 93.5 MCH 29.6 MCHC 31.7 L RDW Std Deviation 46.1 H RDW Coeff of Sangeeta 13.5 Plt Count 248 MPV 11.1 Immature Gran % (Auto) Neut % (Auto) Lymph % (Auto) [place] % (Auto) Eos % (Auto) Baso % (Auto) Absolute Neuts (auto) Absolute Lymphs (auto) Nucleated RBC % Differential Comment Diff Path Review Retic Count Immature Retic Fraction Retic Hgb Equivalent PT INR APTT Sodium 136 Potassium 6.0 H* Chloride 110 H Carbon Dioxide 18.0 L Anion Gap 8 BUN 124 H* Creatinine 9.30 H* Estim Creat Clear Calc 5.92 Est GFR (MDRD) Af Amer 7 L Est GFR (MDRD) Non-Af 6 L BUN/Creatinine Ratio 13.3 Glucose 121 H Calcium 7.8 L Iron TIBC Iron Saturation Ferritin Vitamin B12 Folate Blood Type O NEGATIVE Antibody Screen NEGATIVE Crossmatch See Detail 08/26/20 08/26/20 08/26/20 15:40 15:40 15:40 WBC RBC Hgb Hct MCV MCH MCHC RDW Std Deviation RDW Coeff of Sangeeta Plt Count MPV Immature Gran % (Auto) Neut % (Auto) Lymph % (Auto) [place] % (Auto) Eos % (Auto) Baso % (Auto) Absolute Neuts (auto) Absolute Lymphs (auto) Nucleated RBC % Differential Comment Diff Path Review Retic Count Immature Retic Fraction Retic Hgb Equivalent PT INR APTT Sodium Potassium Chloride Carbon Dioxide Anion Gap BUN Creatinine Estim Creat Clear Calc Est GFR (MDRD) Af Amer Est GFR (MDRD) Non-Af BUN/Creatinine Ratio Glucose Calcium Iron 37 L TIBC 219 L Iron Saturation 16.9 Ferritin 333 Vitamin B12 260 Folate 35.60 Blood Type Antibody Screen Crossmatch 08/26/20 08/26/20 08/26/20 15:40 22:18 22:18 WBC RBC Hgb 6.8 L Hct 21.8 L MCV MCH MCHC RDW Std Deviation RDW Coeff of Sange[place] Plt Count MPV Immature Gran % (Auto) Neut % (Auto) Lymph % (Auto) [place] % (Auto) Eos % (Auto) Baso % (Auto) Absolute Neuts (auto) Absolute Lymphs (auto) Nucleated RBC % Differential Comment Diff Path Review Retic Count Immature Retic Fraction Retic Hgb Equivalent PT INR APTT Sodium 140 Potassium 5.5 H Chloride 111 H Carbon Dioxide 18.0 L Anion Gap 11 BUN 124 H* Creatinine 9.18 H* Estim Creat Clear Calc 6.00 Est GFR (MDRD) Af Amer 7 L Est GFR (MDRD) Non-Af 6 L BUN/Creatinine Ratio 13.5 Glucose 119 H Calcium 7.6 L Iron TIBC Iron Saturation Ferritin Vitamin B12 Folate Blood Type Antibody Screen Crossmatch See Detail 08/27/20 08/27/20 04:35 08:40 WBC 3.0 L RBC 2.57 L Hgb 7.5 L Hct 23.1 L MCV 89.9 MCH 29.2 MCHC 32.5 RDW Std Deviation 44.7 H RDW Coeff of Sangeeta 13.6 Plt Count 209 MPV 11.0 Immature Gran % (Auto) 0.700 Neut % (Auto) 88.1 H Lymph % (Auto) 7.6 L [place] % (Auto) 3.3 Eos % (Auto) 0.0 Baso % (Auto) 0.3 Absolute Neuts (auto) 2.7 Absolute Lymphs (auto) 0.23 L Nucleated RBC % 0 Differential Comment SCANNED Diff Path Review May foll Retic Count 0.72 Immature Retic Fraction 6.30 Retic Hgb Equivalent 32.3 PT 14.6 INR 1.2 APTT 31.1 Sodium Potassium Chloride Carbon Dioxide Anion Gap BUN Creatinine Estim Creat Clear Calc Est GFR (MDRD) Af Amer Est GFR (MDRD) Non-Af BUN/Creatinine Ratio Glucose Calcium Iron TIBC Iron Saturation Ferritin Vitamin B12 Folate Blood Type Antibody Screen Crossmatch Radiology Impression Chest X-Ray 08/27/20 12:26 IMPRESSION: The tip of the right-sided dialysis catheter is at the junction of the superior vena cava and right atrium. Borderline cardiomegaly. Mild degree of vascular congestion. Electronically Signed: Wilberto Jimenez MD at 13:01 EDT , Service support ,
[2020-08-27 14:23] LABS: Pathologist Review Reviewed
--- NOTE | 2020-08-27 15:13 | CASEMGMT ---
Notified by that pt needs outpt dialysis set up. Pt chooses [facility]. Referral made per portal at this time.
--- NOTE | 2020-08-27 16:30 | PN.HOSP_ITS ---
Subjective Subjective Patient was seen and examined. He denied any new complaint. Denied melena stools or hematochezia or chest pain. He will have a tunneled dialysis catheter placed today. Dialysis will be today. Discussed with nephrology Objective Data Objective Data Vital Signs: Vital Signs Temp Pulse Resp BP Pulse Ox 98.4 F 80 14 122/69 H 99 08/27/20 15:00 08/27/20 15:08 08/27/20 15:08 08/27/20 15:00 08/27/20 15:00 Oxygen Delivery Method Room Air Weight: 72.2 kg Body Mass Index (BMI) 24.2 Intake & Output: Intake and Output for Last 24 Hours 08/25/20 08/26/20 08/27/20 23:59 23:59 23:59 Intake Total 710 / 710 710 / 710 Output Total 0 / 0 175 / 175 Balance 710 / 710 535 / 535 Lab / Micro Data Result Diagrams: 08/27/20 04:35 08/26/20 22:18 Labs: Laboratory Results - last 24 hr 08/26/20 08/26/20 08/26/20 15:40 15:40 15:40 WBC RBC Hgb Hct MCV MCH MCHC RDW Std Deviation RDW Coeff of Sange[place] Plt Count MPV Immature Gran % (Auto) Neut % (Auto) Lymph % (Auto) [place] % (Auto) Eos % (Auto) Baso % (Auto) Absolute Neuts (auto) Absolute Lymphs (auto) Nucleated RBC % Differential Comment Diff Path Review Retic Count Immature Retic Fraction Retic Hgb Equivalent PT INR APTT Sodium 136 Potassium 6.0 H* Chloride 110 H Carbon Dioxide 18.0 L Anion Gap 8 BUN 124 H* Creatinine 9.30 H* Estim Creat Clear Calc 5.92 Est GFR (MDRD) Af Amer 7 L Est GFR (MDRD) Non-Af 6 L BUN/Creatinine Ratio 13.3 Glucose 121 H Calcium 7.8 L Iron 37 L TIBC 219 L Iron Saturation 16.9 Ferritin 333 Vitamin B12 Folate Blood Type O NEGATIVE Antibody Screen NEGATIVE Crossmatch See Detail 08/26/20 08/26/20 08/26/20 15:40 15:40 15:40 WBC RBC Hgb Hct MCV MCH MCHC RDW Std Deviation RDW Coeff of Sange[place] Plt Count MPV Immature Gran % (Auto) Neut % (Auto) Lymph % (Auto) [place] % (Auto) Eos % (Auto) Baso % (Auto) Absolute Neuts (auto) Absolute Lymphs (auto) Nucleated RBC % Differential Comment Diff Path Review Retic Count Immature Retic Fraction Retic Hgb Equivalent PT INR APTT Sodium Potassium Chloride Carbon Dioxide Anion Gap BUN Creatinine Estim Creat Clear Calc Est GFR (MDRD) Af Amer Est GFR (MDRD) Non-Af BUN/Creatinine Ratio Glucose Calcium Iron TIBC Iron Saturation Ferritin Vitamin B12 260 Folate 35.60 Blood Type Antibody Screen Crossmatch See Detail 08/26/20 08/26/20 08/27/20 22:18 22:18 04:35 WBC 3.0 L RBC 2.57 L Hgb 6.8 L 7.5 L Hct 21.8 L 23.1 L MCV 89.9 MCH 29.2 MCHC 32.5 RDW Std Deviation 44.7 H RDW Coeff of Sangeeta 13.6 Plt Count 209 MPV 11.0 Immature Gran % (Auto) 0.700 Neut % (Auto) 88.1 H Lymph % (Auto) 7.6 L [place] % (Auto) 3.3 Eos % (Auto) 0.0 Baso % (Auto) 0.3 Absolute Neuts (auto) 2.7 Absolute Lymphs (auto) 0.23 L Nucleated RBC % 0 Differential Comment SCANNED Diff Path Review Reviewed Retic Count 0.72 Immature Retic Fraction 6.30 Retic Hgb Equivalent 32.3 PT INR APTT Sodium 140 Potassium 5.5 H Chloride 111 H Carbon Dioxide 18.0 L Anion Gap 11 BUN 124 H* Creatinine 9.18 H* Estim Creat Clear Calc 6.00 Est GFR (MDRD) Af Amer 7 L Est GFR (MDRD) Non-Af 6 L BUN/Creatinine Ratio 13.5 Glucose 119 H Calcium 7.6 L Iron TIBC Iron Saturation Ferritin Vitamin B12 Folate Blood Type Antibody Screen Crossmatch 08/27/20 08:40 WBC RBC Hgb Hct MCV MCH MCHC RDW Std Deviation RDW Coeff of Sange[place] Plt Count MPV Immature Gran % (Auto) Neut % (Auto) Lymph % (Auto) [place] % (Auto) Eos % (Auto) Baso % (Auto) Absolute Neuts (auto) Absolute Lymphs (auto) Nucleated RBC % Differential Comment Diff Path Review Retic Count Immature Retic Fraction Retic Hgb Equivalent PT 14.6 INR 1.2 APTT 31.1 Sodium Potassium Chloride Carbon Dioxide Anion Gap BUN Creatinine Estim Creat Clear Calc Est GFR (MDRD) Af Amer Est GFR (MDRD) Non-Af BUN/Creatinine Ratio Glucose Calcium Iron TIBC Iron Saturation Ferritin Vitamin B12 Folate Blood Type Antibody Screen Crossmatch Radiography Diagnostic Testing: Radiology Impression Chest X-Ray 08/27/20 12:26 IMPRESSION: The tip of the right-sided dialysis catheter is at the junction of the superior vena cava and right atrium. Borderline cardiomegaly. Mild degree of vascular congestion. Electronically Signed: Wilberto Jimenez MD at 13:01 EDT , Service support , Physical Exam Narrative Alert and oriented x3 Nontraumatic; normocephalic Tachypnea lung clear to auscultate Tachycardia heart sounds S1-S2. No murmur, gallop or rubs. Abdomen bowel sounds present soft, nontender nondistended Extremity: Right with dialysis access device with bruits. Extremities without edema cyanosis or clubbing. Assessment & Plan Assessment/Plan (1) Symptomatic anemia: (2) COPD exacerbation: (3) GUILLE (acute kidney injury): (4) Acute hyperkalemia: PLAN: 1. Acute symptomatic anemia on chronic anemia/anemia of CKD, hemoglobin is 7.5. Status post 2 units of packed RBC. Iron stores show a mixed picture. Reticulocyte count is normal at 0.72. Vitamin B2 level is 260. Folate is 35.6. FOBT pending 2. Hyperkalemia, potassium is 5.5, status post Kayexalate treatment Patient will receive dialysis today 3. Acute COPD exacerbation, mild Continue breathing treatments and Solu-Medrol 4. End-stage renal disease, patient to be started on dialysis Visit Charges Inpatient E&M: [id number] [facility] Hosp L3
[2020-08-27] MEDS: Heparin 10,000 UNITS/10 ML Vial IV (19:33)
--- NOTE | 2020-08-27 20:24 | DIALYSIS ---
First hemodialysis treatment completed,2 K bath, no fluid removed. Patient tolerated well. Next treatment will be tomorrow per Nephrology. See flow sheet for details.
[2020-08-27] MEDS: Gabapentin 300 MG Capsule PO (21:31)
[2020-08-28] VITALS (11 sets, daily range): BP systolic 121–130; BP diastolic 60–79; PULSE 62–101; RESP 16–20; TEMP 36.6–37.2; O2SAT 94–99
[2020-08-28] MEDS: Levothyroxine 75 MCG Tablet PO (05:32)
[2020-08-28] MEDS: 0.9% Saline Lock 10 ML Syringe IV (05:33)
[2020-08-28 05:53] LABS: Absolute Lymphocyte Count 0.19 X10^3/uL (0.83-4.51); Absolute Neutrophil Count 2.3 X10^3/uL (2.0-7.7); Hematocrit 21.9 % (40-54); Hemoglobin 7.2 g/dL (13.0-16.5); Lymphocyte # 0.19 X10^3/ul (0.83-4.51); Mean Corp Hgb Conc 32.9 g/dL (32-36); Mean Corpuscular Hgb 29.1 pg (27.0-32.0); Mean Corpuscular Volume 88.7 fL (80-94); Mean Platelet Vol. 11.3 fl (6.2-12.0); Monocyte# 0.21 X10^3/uL; Monocyte% 7.7 % (0-10); NRBC Flagged by Analyzer 0 % (0-5); Neutrophil # 2.32 X10^3/uL (2.7-7.7); Neutrophil % 84.9 % (47-70); POSITIVE DIFFERENTIAL YES; Platelet Count 206 K/mm3 (150-450); RBC Distribution Width CV 13.3 % (11.6-14.6); RBC Distribution Width SD 43.8 fl (35.1-43.9); Red Blood Count 2.47 M/mm3 (4.6-6.2); White Blood Count 2.7 K/mm3 (4.4-11.0)
[2020-08-28 06:08] LABS: HEPATITIS B SURFACE AG Negative (Negative); Hepatitis A IgM Antibody Negative (Negative); Hepatitis B Core AB IgM Negative (Negative)
[2020-08-28 06:11] LABS: Differential Indicated SCAN CRITERIA MET
[2020-08-28 06:36] LABS: Albumin, Serum 2.4 g/dL (3.2-5.0); BUN 81 mg/dL (7-18); BUN/Creat Ratio 13.3 RATIO (10-20); Calcium,Total 7.1 mg/dL (8.5-10.1); Chloride 102 mmol/L (98-107); EST Glomerular Filtration Rate 9 mL/min (>60); Est Glom Filt Rate - Afr Amer 11 mL/min (>60); Estimated Creatinine Clearance 9.03 ml/min; Glucose 255 mg/dL (74-106); Phosphorus 5.6 mg/dL (2.5-4.9); Potassium 4.4 mmol/L (3.5-5.1); Sodium Level 137 mmol/L (136-145)
[2020-08-28 07:05] LABS: Differential Comment SCANNED
[2020-08-28 07:06] LABS: Hypochromasia 1+
[2020-08-28] MEDS: Finasteride 5 MG Tablet PO (09:33)
[2020-08-28 09:35] LABS: Hep C Antibodies <0.1 s/co ratio (0.0-0.9)
--- NOTE | 2020-08-28 10:08 | PN_ITS ---
Progress Note REVIEWED LABS, VITALS TOLERATED FIRST DIALYSIS WELL YESTERDAY. DIALYSIS #2 TODAY. HYPERKALEMIA RESOLVED. FOLLOW LOW K DIET. IV IRON, EPO TODAY FOR ANEMIA. ARRANGE OUTPT DIALYSIS AT [facility] PRIOR TO DISCHARGE
[2020-08-28 11:02] LABS: Hepatitis B Surface Antibody Non-Reactive
[2020-08-28] MEDS: Ipratropium/Albuterol Sulfate 3 ML AMPUL.NEB INHALATION ×3 (11:15→19:38)
[2020-08-28] MEDS: Heparin 10,000 UNITS/10 ML Vial IV (13:50)
--- NOTE | 2020-08-28 14:02 | PN.HOSP_ITS ---
Subjective Subjective Patient was seen and examined. He denied any new complaints. He is having his second dialysis. He feels improved. Objective Data Objective Data Vital Signs: Vital Signs Temp Pulse Resp BP Pulse Ox 98.0 F 77 18 121/62 H 99 08/28/20 09:23 08/28/20 13:35 08/28/20 11:15 08/28/20 09:23 08/28/20 09:23 Oxygen Delivery Method Room Air Weight: 73.6 kg Body Mass Index (BMI) 24.2 Intake & Output: Intake and Output for Last 24 Hours 08/26/20 08/27/20 08/28/20 23:59 23:59 23:59 Intake Total 710 / 710 1780 / 1780 410 / 410 Output Total 0 / 0 775 / 775 300 / 300 Balance 710 / 710 1005 / 1005 110 / 110 Lab / Micro Data Result Diagrams: 08/28/20 05:28 08/28/20 05:28 Labs: Laboratory Results - last 24 hr 08/27/20 08/27/20 08/27/20 04:35 04:35 04:35 WBC RBC Hgb Hct MCV MCH MCHC RDW Std Deviation RDW Coeff of Sangeeta Plt Count MPV Immature Gran % (Auto) Neut % (Auto) Lymph % (Auto) [place] % (Auto) Eos % (Auto) Baso % (Auto) Absolute Neuts (auto) Absolute Lymphs (auto) Nucleated RBC % Differential Comment Diff Path Review Reviewed Hypochromasia Sodium Potassium Chloride Carbon Dioxide BUN Creatinine Estim Creat Clear Calc Est GFR (MDRD) Af Amer Est GFR (MDRD) Non-Af BUN/Creatinine Ratio Glucose Calcium Phosphorus Albumin PTH Intact Hepatitis A IgM Ab Negative Hep Bs Antigen Negative Hep Bs Antibody Non-Reactive Hep B Core IgM Ab Negative Hepatitis C Ab (EIA) <0.1 08/28/20 08/28/20 08/28/20 05:28 05:28 05:28 WBC 2.7 L RBC 2.47 L Hgb 7.2 L Hct 21.9 L MCV 88.7 MCH 29.1 MCHC 32.9 RDW Std Deviation 43.8 RDW Coeff of Sangeeta 13.3 Plt Count 206 MPV 11.3 Immature Gran % (Auto) 0.400 Neut % (Auto) 84.9 H Lymph % (Auto) 7.0 L [place] % (Auto) 7.7 Eos % (Auto) 0.0 Baso % (Auto) 0.0 Absolute Neuts (auto) 2.3 Absolute Lymphs (auto) 0.19 L Nucleated RBC % 0 Differential Comment SCANNED Diff Path Review May foll Hypochromasia 1+ Sodium 137 Potassium 4.4 Chloride 102 Carbon Dioxide 24.0 BUN 81 H Creatinine 6.10 H Estim Creat Clear Calc 9.03 Est GFR (MDRD) Af Amer 11 L Est GFR (MDRD) Non-Af 9 L BUN/Creatinine Ratio 13.3 Glucose 255 H Calcium 7.1 L Phosphorus 5.6 H Albumin 2.4 L PTH Intact 207.0 H Hepatitis A IgM Ab Hep Bs Antigen Hep Bs Antibody Hep B Core IgM Ab Hepatitis C Ab (EIA) Physical Exam Narrative Alert and oriented x3 Nontraumatic; normocephalic Tachypnea lung clear to auscultate Tachycardia heart sounds S1-S2. No murmur, gallop or rubs. Abdomen bowel sounds present soft, nontender nondistended Extremity: Right with dialysis access device with bruits. Extremities without edema cyanosis or clubbing. Assessment & Plan Assessment/Plan (1) Symptomatic anemia: (2) COPD exacerbation: (3) GUILLE (acute kidney injury): (4) Acute hyperkalemia: PLAN: 1. Acute symptomatic anemia on chronic anemia/anemia of CKD, hemoglobin is 7.2. Status post 2 units of packed RBC. Iron stores show a mixed picture. Reticulocyte count is normal at 0.72. Vitamin B2 level is 260. Folate is 35.6. FOBT pending. Would give Venofer x1 2. Hyperkalemia, resolved,, status post Kayexalate treatment and dialysis 3. Acute COPD exacerbation, mild Continue breathing treatments and Solu-Medrol 4. End-stage renal disease, status post right-sided tunneled dialysis catheter, stable, On day 2 of dialysis Nephrology following Visit Charges Inpatient E&M: 67020 Subs Hosp L2
--- NOTE | 2020-08-28 15:37 | DIALYSIS ---
HD today as ordered. 3hr 3k ran even tolerated well no issues. dressing change to L cvc sight clear.
[2020-08-28] MEDS: Epoetin Alfa epbx 10,000 UNITS/ML 10000 UNIT SC (16:44)
[2020-08-28] MEDS: Gabapentin 300 MG Capsule PO (20:05)
[2020-08-29] VITALS (18 sets, daily range): BP systolic 102–148; BP diastolic 52–79; PULSE 69–106; RESP 14–18; TEMP 36.1–36.9; O2SAT 92–100
[2020-08-29 05:39] LABS: Absolute Lymphocyte Count 0.47 X10^3/uL (0.83-4.51); Absolute Neutrophil Count 3.7 X10^3/uL (2.0-7.7); Hematocrit 20.8 % (40-54); Hemoglobin 6.7 g/dL (13.0-16.5); Lymphocyte # 0.47 X10^3/ul (0.83-4.51); Lymphocyte % 9.8 % (19-41); Mean Corp Hgb Conc 32.2 g/dL (32-36); Mean Corpuscular Hgb 29.4 pg (27.0-32.0); Mean Corpuscular Volume 91.2 fL (80-94); Mean Platelet Vol. 11.3 fl (6.2-12.0); Monocyte# 0.61 X10^3/uL; Monocyte% 12.8 % (0-10); NRBC Flagged by Analyzer 0 % (0-5); Neutrophil # 3.68 X10^3/uL (2.7-7.7); POSITIVE DIFFERENTIAL YES; Platelet Count 195 K/mm3 (150-450); RBC Distribution Width CV 13.9 % (11.6-14.6); RBC Distribution Width SD 45.1 fl (35.1-43.9); Red Blood Count 2.28 M/mm3 (4.6-6.2); White Blood Count 4.8 K/mm3 (4.4-11.0)
[2020-08-29 05:41] LABS: Differential Indicated SCAN CRITERIA MET
[2020-08-29 05:55] LABS: Albumin, Serum 2.5 g/dL (3.2-5.0); BUN 52 mg/dL (7-18); BUN/Creat Ratio 11.6 RATIO (10-20); Calcium,Total 7.4 mg/dL (8.5-10.1); Chloride 101 mmol/L (98-107); Creatinine, Serum 4.47 mg/dL (0.70-1.30); EST Glomerular Filtration Rate 14 mL/min (>60); Est Glom Filt Rate - Afr Amer 16 mL/min (>60); Estimated Creatinine Clearance 12.33 ml/min; Glucose 123 mg/dL (74-106); Potassium 3.8 mmol/L (3.5-5.1); Sodium Level 137 mmol/L (136-145)
[2020-08-29] MEDS: Levothyroxine 75 MCG Tablet PO (06:30)
[2020-08-29] MEDS: Ipratropium/Albuterol Sulfate 3 ML AMPUL.NEB INHALATION ×4 (07:25→19:32)
[2020-08-29] MEDS: Finasteride 5 MG Tablet PO (10:36)
[2020-08-29] MEDS: predniSONE 20 MG Tablet 40 MG PO (10:36)
--- NOTE | 2020-08-29 14:17 | PCM.PN.HOSP ---
Subjective Subjective Patient seen and examined. He denied any new complaints. His hemoglobin dropped to 6.7. He has been transfused 1 units of packed RBCs today. Denied any chest pain or dizziness. Objective Data Objective Data Vital Signs: Vital Signs Temp Pulse Resp BP Pulse Ox 98.0 F 76 16 102/56 L 99 08/29/20 13:41 08/29/20 13:41 08/29/20 13:41 08/29/20 13:41 08/29/20 13:41 Oxygen Delivery Method Room Air Weight: 73.7 kg Body Mass Index (BMI) 24.2 Intake & Output: Intake and Output for Last 24 Hours 08/27/20 08/28/20 08/29/20 23:59 23:59 23:59 Intake Total 1780 / 1780 520 / 520 210 / 210 Output Total 775 / 775 300 / 300 350 / 350 Balance 1005 / 1005 220 / 220 -140 / -140 Lab / Micro Data Result Diagrams: 08/29/20 05:00 08/29/20 05:00 Labs: Laboratory Results - last 24 hr 08/26/20 08/26/20 08/29/20 15:40 15:40 05:00 WBC 4.8 RBC 2.28 L Hgb 6.7 L Hct 20.8 L MCV 91.2 MCH 29.4 MCHC 32.2 RDW Std Deviation 45.1 H RDW Coeff of Sangeeta 13.9 Plt Count 195 MPV 11.3 Immature Gran % (Auto) 0.400 Neut % (Auto) 77.0 H Lymph % (Auto) 9.8 L [place] % (Auto) 12.8 H Eos % (Auto) 0.0 Baso % (Auto) 0.0 Absolute Neuts (auto) 3.7 Absolute Lymphs (auto) 0.47 L Nucleated RBC % 0 Sodium Potassium Chloride Carbon Dioxide BUN Creatinine Estim Creat Clear Calc Est GFR (MDRD) Af Amer Est GFR (MDRD) Non-Af BUN/Creatinine Ratio Glucose Calcium Phosphorus Albumin Crossmatch See Detail See Detail 08/29/20 05:00 WBC RBC Hgb Hct MCV MCH MCHC RDW Std Deviation RDW Coeff of S[place] Plt Count MPV Immature Gran % (Auto) Neut % (Auto) Lymph % (Auto) [place] % (Auto) Eos % (Auto) Baso % (Auto) Absolute Neuts (auto) Absolute Lymphs (auto) Nucleated RBC % Sodium 137 Potassium 3.8 Chloride 101 Carbon Dioxide 28.0 BUN 52 H Creatinine 4.47 H Estim Creat Clear Calc 12.33 Est GFR (MDRD) Af Amer 16 L Est GFR (MDRD) Non-Af 14 L BUN/Creatinine Ratio 11.6 Glucose 123 H Calcium 7.4 L Phosphorus 5.0 H Albumin 2.5 L Crossmatch Physical Exam Narrative General: Alert, Oriented x3, Cooperative, No apparent distress, Well developed HEENT: Atraumatic Oral: Moist Mucosa Neck: Supple Lungs: Clear to auscultation Cardiovascular: HS I+II, regular, no murmurs Abdomen: Bowel Sounds Present, Soft, Non Tender Extremities: No edema, right with dialysis access device with bruits. Skin: No rashes, No breakdown Neurological: Grossly intact Psych/Mental Status: Appropriate Assessment & Plan Assessment/Plan (1) Symptomatic anemia: (2) COPD exacerbation: (3) GUILLE (acute kidney injury): (4) Acute hyperkalemia: PLAN: 1. Acute symptomatic anemia on chronic anemia/anemia of CKD, hemoglobin is 6.7 Status post 2 units of packed RBC on 08/27/20. Reticulocyte count is normal at 0.72. Vitamin B2 level is 260. Folate is 35.6. FOBT pending. Received Venofer x1 on 08/28/20. Will transfuse another 1 unit of blood, continue on IV PPI twice daily, general surgery consulted 2. Hyperkalemia, resolved,, status post Kayexalate treatment and dialysis 3. Acute COPD exacerbation, improved Continue breathing treatments and Prednisone. Will recommend completing a 5-day short burst 4. End-stage renal disease, status post right-sided tunneled dialysis catheter, stable, Completed 2 days of dialysis. Nephrology following Visit Charges Inpatient E&M: 92850 Subs Hosp L2
[2020-08-29 16:13] LABS: Hematocrit 27.7 % (40-54); Hemoglobin 8.8 g/dL (13.0-16.5)
[2020-08-29] MEDS: 0.9% Saline Lock 10 ML Syringe IV (21:27)
[2020-08-29] MEDS: Gabapentin 300 MG Capsule PO (21:28)
[2020-08-30] VITALS (8 sets, daily range): BP systolic 118–137; BP diastolic 58–86; PULSE 71–92; RESP 16–20; TEMP 36.8–36.9; O2SAT 95–100
[2020-08-30 06:48] LABS: Albumin, Serum 2.5 g/dL (3.2-5.0); BUN 67 mg/dL (7-18); BUN/Creat Ratio 12.1 RATIO (10-20); Calcium,Total 7.1 mg/dL (8.5-10.1); Chloride 102 mmol/L (98-107); Creatinine, Serum 5.55 mg/dL (0.70-1.30); EST Glomerular Filtration Rate 11 mL/min (>60); Est Glom Filt Rate - Afr Amer 13 mL/min (>60); Estimated Creatinine Clearance 9.93 ml/min; Glucose 120 mg/dL (74-106); Potassium 4.1 mmol/L (3.5-5.1); Sodium Level 137 mmol/L (136-145)
[2020-08-30] MEDS: Levothyroxine 75 MCG Tablet PO (07:11)
[2020-08-30] MEDS: predniSONE 20 MG Tablet 40 MG PO (09:09)
[2020-08-30] MEDS: Finasteride 5 MG Tablet PO (09:09)
[2020-08-30] MEDS: 0.9% Saline Lock 10 ML Syringe IV (09:12)
[2020-08-30] MEDS: Folic Acid/Vitamin B Comp W-C 1 Capsule 1 CAP PO (10:23)
--- NOTE | 2020-08-30 10:41 | PCM.PN.SRG ---
Subjective Subjective Patient recently had right internal jugular dialysis catheter placed was admitted for anemia and chronic kidney failure. He received 2 units of blood his hemoglobin is raised 8. He has a longstanding history of chronic anemia. He has been scoped in the past by Dr. Humphrey wick. Objective Data Objective Data Abdomen is soft and nontender normal active bowel sounds Vital Signs: Vital Signs Temp Pulse Resp BP Pulse Ox 98.3 F 87 18 124/58 H 97 08/30/20 09:21 08/30/20 09:21 08/30/20 09:21 08/30/20 09:21 08/30/20 09:21 Oxygen Delivery Method Room Air Weight: 162 lb 7.691 oz Body Mass Index (BMI) 24.2 Intake & Output: Intake and Output for Last 24 Hours 08/28/20 08/29/20 08/30/20 23:59 23:59 23:59 Intake Total 520 / 520 640 / 640 110 / 110 Output Total 300 / 300 350 / 350 Balance 220 / 220 290 / 290 110 / 110 Lab / Micro Data Attestation: I reviewed the patient's lab results. Result Diagrams: 08/29/20 16:06 08/30/20 05:50 Labs: Laboratory Results - last 24 hr 08/26/20 08/26/20 08/29/20 15:40 15:40 16:06 Hgb 8.8 L Hct 27.7 L Sodium Potassium Chloride Carbon Dioxide BUN Creatinine Estim Creat Clear Calc Est GFR (MDRD) Af Amer Est GFR (MDRD) Non-Af BUN/Creatinine Ratio Glucose Calcium Phosphorus Albumin Crossmatch See Detail See Detail 08/30/20 05:50 Hgb Hct Sodium 137 Potassium 4.1 Chloride 102 Carbon Dioxide 26.0 BUN 67 H Creatinine 5.55 H Estim Creat Clear Calc 9.93 Est GFR (MDRD) Af Amer 13 L Est GFR (MDRD) Non-Af 11 L BUN/Creatinine Ratio 12.1 Glucose 120 H Calcium 7.1 L Phosphorus 6.0 H Albumin 2.5 L Crossmatch Assessment & Plan Assessment/Plan (1) Anemia: QUALIFIERS: Anemia type: iron deficiency Iron deficiency anemia type: unspecified iron deficiency Qualified Code(s): D50.9 - Iron deficiency anemia, unspecified PLAN: At this point the patient is not interested in having any endoscopies. He would like to have his dialysis and go home. I have instructed him that he should follow-up with his financial reporting accountant and make sure that he knows that he was anemic requiring blood in the hospital.
[2020-08-30] MEDS: Ipratropium/Albuterol Sulfate 3 ML AMPUL.NEB INHALATION ×2 (10:57→15:11)
--- NOTE | 2020-08-30 11:10 | CASEMGMT ---
Addendum entered by Melody Rainey 08/30/20 11:27: Pt dtr also in the room. She asked questions regarding dialysis at home with pt dtr who is a nurse performing it. Dialysis nurse Khushboo also in room who states this is a possibility that will be discussed at the dialysis center. Pt states he feels strong and ready to go home. Denies any need for HHC. Original Note: Faxed labs and dialysis notes to Corporate at [facility]. TC to Amari at [facility]. He states he has all info needed. Khushboo dialysis nurse from [facility] states she will not dialyze pt today if he can be seen tomorrow. Per Amari, pt can arrive at 1145. Notified pt of the above.
--- NOTE | 2020-08-30 11:32 | PCM.DC ---
Discharge Instructions Diet Discharge Diet: 2000 mg Sodium Diet and Renal Diet Activity Discharge Activity: Return to Normal Activity and May Not Drive Dressing / Incision Call your doctor if you observe: Fever of 101 or Higher, Coldness, Increased Pain, Numbness or Tingling, Change in Color, Inability to urinate, Inability to have a bowel movement, Shortness of breath, Fainting spells, Swelling in the ankles, Chest pain, Prolonged hiccupping, Increased palpitations (irregular heartbeat), Calf discomfort and Uncontrolled pain Follow Up Care Test Results: Test results from this visit will be discussed in further detail at your follow-up appointment, if applicable. Discharge Plan Admission Admit Date/Time: 08/26/20 19:38 Primary Reason for Your Visit: Hyperkalemia, ESRD, new start of hemodialysis, anemia Attending Provider: Cas Hammond Primary Care Provider: Iván Ruby Chi Consulting Providers: Claudia Ruvalcaba ; Gregg Saini ; Alen Ontiveros Instructions Patient Instructions: ED Anemia, Type Not Specified (Adult) Additional Instructions / Restrictions: New start for hemodialysis. Right IJ dialysis catheter Discharge Orders/Prescriptions Prescriptions: New Virt-Caps 1 mg Capsule 1 cap PO DAILY Qty: 30 RF: 0 prednisone 20 mg Tablet 40 mg PO DAILY@0800 Qty: 6 RF: 0 sennosides-docusate sodium [Stool Softener-Stimulant Laxat] 8.6-50 mg Tablet 2 tab PO BID PRN PRN (Reason: Constipation) Qty: 0 RF: 0 pantoprazole [Protonix] 40 mg tablet,delayed release (DR/EC) 40 mg PO BID Qty: 60 RF: 0 Continued levothyroxine 75 mcg tablet 75 mcg PO DAILY RF: 0 finasteride 5 MG tablet 5 mg PO DAILY RF: 0 budesonide-formoterol 160-4.5 mcg/actuation HFA aerosol inhaler 2 puff INHALATION BID Qty: 3 RF: 3 Changed gabapentin [Neurontin] 600 mg tablet 300 mg PO QHS Qty: 0 RF: 0 Referrals / Follow Up: Claudia Ruvalcaba DO [STAFF PHYSICIAN] - Within 2 Weeks Iván Ruby Chi, MD [Primary Care Provider] - In 1 Week Disposition Disposition (needs filled in before D/C Order can be placed): Home, self care
--- NOTE | 2020-08-30 12:05 | PCM.PN.REN ---
Subjective Subjective breathing stable, received multiple blood transfusion over weekend. hgb stable. no nausea, vomiting. Objective Data Objective Data Vital Signs: Vital Signs Temp Pulse Resp BP Pulse Ox 98.3 F 87 16 124/58 H 95 08/30/20 09:21 08/30/20 10:57 08/30/20 10:57 08/30/20 09:21 08/30/20 10:57 Oxygen Delivery Method Room Air Weight: 73.7 kg Body Mass Index (BMI) 24.2 Intake & Output: Intake and Output for Last 24 Hours 08/28/20 08/29/20 08/30/20 23:59 23:59 23:59 Intake Total 520 / 520 640 / 640 110 / 110 Output Total 300 / 300 350 / 350 Balance 220 / 220 290 / 290 110 / 110 Lab / Micro Data Result Diagrams: 08/29/20 16:06 08/30/20 05:50 Labs: Laboratory Results - last 24 hr 08/26/20 08/29/20 08/30/20 15:40 16:06 05:50 Hgb 8.8 L Hct 27.7 L Sodium 137 Potassium 4.1 Chloride 102 Carbon Dioxide 26.0 BUN 67 H Creatinine 5.55 H Estim Creat Clear Calc 9.93 Est GFR (MDRD) Af Amer 13 L Est GFR (MDRD) Non-Af 11 L BUN/Creatinine Ratio 12.1 Glucose 120 H Calcium 7.1 L Phosphorus 6.0 H Albumin 2.5 L Crossmatch See Detail Physical Exam Const alert and oriented x3 Resp clear to auscultation bilaterally Cardio regular rate GI non-tender and non-distended Palpation: soft Extremity full ROM Skin no rashes or lesions noted Neuro Sensorium / Orientation: awake and alert Psych cooperative Assessment & Plan Assessment/Plan (1) ESRD (end stage renal disease): PLAN: HD TTS -2 at dialysis center starting tomorrow. OK to discharge home from renal standpoint. No dialysis today (2) Iron deficiency anemia: PLAN: iv iron, prbc (3) AV fistula: PLAN: wait to mature has TDC as access (4) Acute hyperkalemia: PLAN: resolved with dialysis
[2020-08-30 13:41] LABS: Pathologist Review Reviewed
--- NOTE | 2020-08-30 15:48 | DS.PCM_ITS ---
Providers Date of Admission: 08/26/20 Primary Care Physician: Dr. Iván Ruby MD Consultations 08/26/20 19:31 Consult: Nephrology Routine Consulting Provider: Claudia Ruvalcaba Reason for Consult: Hyperkalemia, acute on chronic renal failure end-stage EMERGENT Consult: Yes Notified: Yes Date Notified:: 08/26/20 Time Notified: 19:32 Method of Notification: Verbal 08/26/20 21:22 Consult: Nephrology Routine Consulting Provider: Claudia Ruvalcaba Reason for Consult: Hyperkalemia EMERGENT Consult: No Notified: Yes Date Notified:: 08/27/20 Time Notified: 07:46 Method of Notification: Text 08/27/20 08:20 Consult: General Surgery Routine Consulting Provider: Gregg Saini Reason for Consult: tunneled dialysis cath placement EMERGENT Consult: No Notified: Yes Date Notified:: 08/27/20 Time Notified: 08:21 Method of Notification: md to md 08/29/20 14:18 Consult: General Surgery Routine Consulting Provider: Alen Ontiveros Reason for Consult: GI bleed EMERGENT Consult: No Notified: Yes Date Notified:: 08/29/20 Time Notified: 14:24 Method of Notification: per Dr. Jones Reason For Visit: SYMPTOMATIC ANEMIA, HYPERKALEMIA Diagnosis Discharge Diagnosis (1) ESRD (end stage renal disease): Status: Acute Code(s): N18.6 - End stage renal disease (2) Iron deficiency anemia: Status: Acute Code(s): D50.9 - Iron deficiency anemia, unspecified (3) AV fistula: Status: Chronic Code(s): I77.0 - Arteriovenous fistula, acquired (4) Acute hyperkalemia: Status: Acute Code(s): E87.5 - Hyperkalemia Medications at Discharge Home Medications finasteride 5 mg PO DAILY 11/09/14 budesonide-formoterol HFA 160 mcg-4.5 mcg/actuation aerosol inhaler 2 puff INHALATION BID #3 device 04/30/19 levothyroxine 75 mcg tablet 75 mcg PO DAILY 03/01/20 B complex with C 20-folic acid [Virt-Caps] 1 cap PO DAILY #30 cap 08/30/20 gabapentin [Neurontin] 300 mg PO QHS #0 tablet 08/30/20 pantoprazole [Protonix] 40 mg PO BID #60 tab 08/30/20 prednisone 40 mg PO DAILY@0800 #6 tab 08/30/20 sennosides-docusate sodium [Stool Softener-Stimulant Laxat] 2 tab PO BID PRN PRN #0 tab 08/30/20 Hospital Course Summary of Care Provided Hospital Course: This 84-year gentleman was admitted with progressive worsening of shortness of breath for 2 weeks consistent with COPD exacerbation. Patient had right arm AV fistula created by Dr. Gregg Saini on 08/20/2020. 1. Acute symptomatic anemia on chronic anemia due to CKD, hemoglobin is 6.7. Patient had 2 units of PRBC transfusion on 08/27. Patient vitamin B12 also 260 and folate 35.6. Reticulocyte count normal. Iron work-up consistent with anemia of chronic disease with low iron, low TIBC and ferritin 313. Patient had Venofer on 08/28. On IV PPI twice daily. General surgery was consulted and recommended outpatient EGD with patient's nautical instrument mechanic Dr. Sears in 2 weeks. Patient had colonoscopy about 5 years ago and was normal as per the pat ient but never had EGD. Stool for occult blood was ordered did not get collected. Patient given a prescription for Protonix and cyanocobalamin.. 2. Hyperkalemia, resolved,, status post Kayexalate treatment and dialysis. Patient had new start of hemodialysis with right IJ dialysis catheter. Patient also has right arm AV fistula. 3. Acute COPD exacerbation, improved with bronchodilators and prednisone. 3 more days of prednisone burst 40 mg daily. Patient on home inhaler. 4. End-stage renal disease, status post right-sided tunneled dialysis catheter, stable: Patient dialysis service Sunday and Sunday transition to outpatient by public health social worker and telehealth case manager. Discharge medication reconciliation done. Discharge follow-up instructions completed. Discharge process discussed with the patient and all questions were answered to patient's satisfaction. Total time spent, exact 35 minutes on discharge meds reconciliation, examination, coordination of care with nurses and ancillary staff, review of imaging and blood test and discussion with the patient on follow-up in structions Physical Exam Narrative Seen and examined. Patient does not have any specific complaint. Shortness of breath is improved. General: Alert, Oriented x3, Cooperative HEENT: Atraumatic, PERRLA, EOMI, Normocephalic, hard of hearing. Oral: No Gingival or Mucosal Lesions/ Ulcerations Neck: Supple, No JVD, Negative Carotid Bruits. Right IJ tunneled dialysis catheter. Lungs: Air entry diminished in bilateral lung bases. No crepitation/rhonchi/wheezing Cardiovascular: Regular rate, Regular Rhythm, Normal S1, Normal S2, systolic murmur LLSB Abdomen: Bowel Sounds Present, Soft, Non Tender, Non-Distended : No renal angle tenderness. No suprapubic tenderness. Extremities: No edema, Capillary Refill Less than 3 Seconds Skin: No rashes, No breakdown Musculoskeletal: No Tenderness to Palpation of Joints or Extremities Neurological: Cranial nerves II-XII grossly intact, Deep Tendon Reflexes 2+/4 and Symmetrical, Neuro grossly intact Psych/Mental Status: Normal Affect, Appropriate. ABG / Lab / Microbiology Data Result Diagrams: 08/29/20 16:06 08/30/20 05:50 Laboratory: Laboratory Results - last 24 hr 08/28/20 08/29/20 08/30/20 05:28 16:06 05:50 Hgb 8.8 L Hct 27.7 L Diff Path Review Reviewed Sodium 137 Potassium 4.1 Chloride 102 Carbon Dioxide 26.0 BUN 67 H Creatinine 5.55 H Estim Creat Clear Calc 9.93 Est GFR (MDRD) Af Amer 13 L Est GFR (MDRD) Non-Af 11 L BUN/Creatinine Ratio 12.1 Glucose 120 H Calcium 7.1 L Phosphorus 6.0 H Albumin 2.5 L D/C Instructions Discharge Diet: 2000 mg Sodium Diet and Renal Diet Discharge Activity: Return to Normal Activity and May Not Drive Call your doctor if you observe: Fever of 101 or Higher, Coldness, Increased Pain, Numbness or Tingling, Change in Color, Inability to urinate, Inability to have a bowel movement, Shortness of breath, Fainting spells, Swelling in the ankles, Chest pain, Prolonged hiccupping, Increased palpitations (irregular heartbeat), Calf discomfort and Uncontrolled pain Meaningful Use Info Meaningful Use Diagnoses (Choose all that apply): None applicable Discharge Plan Admission Admit Date/Time: 08/26/20 19:38 Primary Reason for Your Visit: Hyperkalemia, ESRD, new start of hemodialysis, anemia Attending Provider: Cas Hammond Primary Care Provider: Iván Ruby Chi Consulting Providers: Claudia Ruvalcaba ; Gregg Saini ; Alen Ontiveros Instructions Patient Instructions: ED Anemia, Type Not Specified (Adult) Additional Instructions / Restrictions: New start for hemodialysis. Right IJ dialysis catheter Discharge Orders/Prescriptions Prescriptions: New Virt-Caps 1 mg Capsule 1 cap PO DAILY Qty: 30 RF: 0 prednisone 20 mg Tablet 40 mg PO DAILY@0800 Qty: 6 RF: 0 sennosides-docusate sodium [Stool Softener-Stimulant Laxat] 8.6-50 mg Tablet 2 tab PO BID PRN PRN (Reason: Constipation) Qty: 0 RF: 0 pantoprazole [Protonix] 40 mg tablet,delayed release (DR/EC) 40 mg PO BID Qty: 60 RF: 0 Continued levothyroxine 75 mcg tablet 75 mcg PO DAILY RF: 0 finasteride 5 MG tablet 5 mg PO DAILY RF: 0 budesonide-formoterol 160-4.5 mcg/actuation HFA aerosol inhaler 2 puff INHALATION BID Qty: 3 RF: 3 Changed gabapentin [Neurontin] 600 mg tablet 300 mg PO QHS Qty: 0 RF: 0 Referrals / Follow Up: Claudia Ruvalcaba DO [STAFF PHYSICIAN] - Within 2 Weeks Iván Ruby Chi, MD [Primary Care Provider] - 09/02/20 10:00 am Zane Sears MD [NON-STAFF] - Within 2 Weeks (For EGD for anemia.) Disposition Disposition (needs filled in before D/C Order can be placed): Home, self care Visit Charges Inpatient E&M: 48088 Disch Hosp
--- NOTE | 2020-08-31 15:15 | CASEMGMT ---
RN CM Discharge Follow-up Phone Call: NICOLE: Errol Strata: 3 Call Date: 08/31/20 Discharge Date: 08/30/20 Time of Call: 1515 Duration: 1 min Admitting Diagnosis: Symptomatic Anemia, Hyperkalemia RN ANAT attempted to complete follow-up phone call after recent hospitalization. No answer, voice message left with return contact information. Patient was setup for outpt HD and had follow-up appts scheduled.
== END 2020-08-30 17:29 | disposition home or self-care (01) | DRG 674 ==
LOC: ED 19:15 → PCU 19:50
PROVIDERS: Internal Medicine; Internal Medicine Nephrology; Surgery; Admitting Provider Hospitalist; Emergency Provider Emergency Medicine; PCP Family Medicine Geriatric Medicine; Visit Provider Internal Medicine
PROC: 0JH63XZ Insertion of Tunneled Vascular Access Device into Chest Subcutaneous Tissue and Fascia, Percutaneous Approach (ICD-10-PCS; principal; 2020-08-27 11:45)
DX: N18.6 End stage renal disease (principal); J44.1 Chronic obstructive pulmonary disease with (acute) exacerbation; D63.1 Anemia in chronic kidney disease; N17.9 Acute kidney failure, unspecified; D50.9 Iron deficiency anemia, unspecified; I25.10 Atherosclerotic heart disease of native coronary artery without angina pectoris; I77.0 Arteriovenous fistula, acquired; I48.0 Paroxysmal atrial fibrillation; E87.5 Hyperkalemia; E03.9 Hypothyroidism, unspecified; H91.93 Unspecified hearing loss, bilateral; I25.2 Old myocardial infarction; Z79.890 Hormone replacement therapy; Z79.899 Other long term (current) drug therapy; Z87.891 Personal history of nicotine dependence
CPT/HCPCS: 36415; 71045; 76000; 80048; 80069; 80074; 82607; 82728; 82746; 83540; 83550; 83970; 85014; 85018; 85025; 85027; 85045; 85610; 85730; 86706; 86850; 86900; 86901; 86920; 86922; 90937; 93005; 94640; 97110; 97162; 97165; 97530; 99284; J1756; J7030; J7040; P9016; A4216; C1750; G0257; J1940; J2405; J2916; Q5106

== ENCOUNTER → 2020-09-02 15:49 | Outpatient (CLI) | payer MEDICARE, OTHER, SELFPAY ==
[2020-08-27 09:26] VITALS: BMI 24.2
--- NOTE | 2020-09-02 15:48 | RAD_ITS ---
STUDY: X-RAY CHEST REASON FOR EXAM: Male, 84 years old. COUGH TECHNIQUE: 2 views COMPARISON: Prior chest radiograph of 08/27/2020 FINDINGS: Central venous catheter terminates in the mid superior vena cava. There are new bilateral severe infiltrates in a distinctly perihilar/peribronchial pattern bilaterally with additional consolidation in the lung bases. Small dependent pleural effusions not excludable. Negative for cardiomegaly. Normal mediastinum and yasir. Obscuration of the pulmonary vascularity. There is atherosclerotic calcification of the aortic arch with tortuosity. There are diffuse degenerative changes of the visualized thoracic spine. Normal visualized ribs, clavicles, and shoulders. There is no demonstrated abnormality of the visualized soft tissue structures of the upper abdomen. RAD/Chest PA and Lateral IMPRESSION: New severe perihilar or peribronchial infiltrates with areas of bibasilar consolidation without cardiomegaly. Findings suggest a peribronchial pneumonic process versus aspiration. Electronically Signed: Pinky Saenz MD at 16:23 EDT , Service support ,
== END ==
PROVIDERS: PCP Family Medicine Geriatric Medicine; Referring Provider Family Medicine Geriatric Medicine; Visit Provider Family Medicine Geriatric Medicine
DX: R05 Cough (principal)
CPT/HCPCS: 71046

== ENCOUNTER 2020-09-02 17:05 | Emergency (ER) | payer MEDICARE, OTHER, SELFPAY ==
[2020-08-27 09:26] VITALS: BMI 24.2
[2020-09-02] VITALS (13 sets, daily range): BP systolic 118–165; BP diastolic 44–87; PULSE 83–104; RESP 16–28; TEMP 36.6–36.7; O2SAT 67–100; BMI 24.3
--- NOTE | 2020-09-02 17:32 | EKG12_ITS ---
Test Reason : SOB Blood Pressure : / mmHG Vent. Rate : 101 BPM Atrial Rate : 101 BPM P-R Int : 190 ms QRS Dur : 136 ms QT Int : 388 ms P-R-T Axes : 052 -56 033 degrees QTc Int : 503 ms Sinus tachycardia with Fusion complexes Right bundle branch block Left anterior fascicular block Bifascicular block Abnormal ECG Confirmed by KJ GATES, MERRITT ([id number]), advertising editor ALEXEY FLOREZ ([id number]) on 09/07/2020 10:06:20 A M Referred By: NICOLETTE Confirmed By:MARIBEL UNDERWOOD MD
--- NOTE | 2020-09-02 17:33 | ED.VIS.DYS ---
HPI History of Present Illness Chief Complaint: Shortness of Breath Detail of Chief Complaint: Short of breath for several days Informant: patient Associated Symptoms cough Narrative Narrative: Patient feeling short of breath for several days with hemoptysis. Patient passing some clots when he coughs. He denies fever. He was seen by his primary care physician today and had a chest x-ray there was concern for pneumonia so he sent to the emergency department. On arrival to the ER he was noted to be hypoxic. He does not normally wear home O2. Patient does have history of COPD. Patient has history of chronic kidney disease and hypothyroidism. Patient has had both Covid vaccines. Patient is a dialysis patient. Prior similar symptoms: No [facility] Medical History (Updated 09/02/20 @ 20:[address] Maci Hunter, ) Allergic rhinitis Anemia Asthma Atherosclerotic heart disease of [place] coronary artery without angina pectoris Atrial fibrillation AVF (arteriovenous fistula) Chest pain Chronic renal failure, stage 4 (severe) Chronic renal failure, stage 5 COPD (chronic obstructive pulmonary disease) Hearing loss, left Hearing loss, right Heartburn History of non-ST elevation myocardial infarction (NSTEMI) Hypersomnia Hypothyroidism Kidney disease Leg cramps Lymphadenopathy Myocardial infarct Paroxysmal atrial fibrillation Periodic limb movement disorder Premature ventricular contractions Purpura Shortness of breath Shortness of breath on exertion Silicosis Wears dentures Wears glasses Home Medications finasteride 5 mg PO DAILY 11/09/14 [History Last Taken 08/26/20] budesonide-formoterol HFA 160 mcg-4.5 mcg/actuation aerosol inhaler 2 puff INHALATION BID #3 device 04/30/19 [Rx Last Taken 08/26/20] levothyroxine 75 mcg tablet 75 mcg PO DAILY 03/01/20 [History Last Taken 08/24/20] B complex with C 20-folic acid [Virt-Caps] 1 cap PO DAILY #30 cap 08/30/20 [Rx Last Taken Unknown] cyanocobalamin (vitamin B-12) 1,000 mcg PO DAILY #30 tab 08/30/20 [Rx Last Taken Unknown] gabapentin [Neurontin] 300 mg PO QHS #0 tablet 08/30/20 [Rx Last Taken 08/25/20] pantoprazole [Protonix] 40 mg PO BID #60 tab 08/30/20 [Rx Last Taken Unknown] prednisone 40 mg PO DAILY@0800 #6 tab 08/30/20 [Rx Last Taken Unknown] sennosides-docusate sodium [Stool Softener-Stimulant Laxat] 2 tab PO BID PRN PRN #0 tab 08/30/20 [Rx Last Taken Unknown] Allergy/AdvReac Type Severity Reaction Status Date / Time No Known Allergies Allergy Verified 08/26/20 14:31 Family History Father , age 82 CAD (coronary artery disease) Mother , Age 88 Breast cancer Surgical History AV fistula History of cataract surgery History of left heart catheterization History of transurethral resection of prostate Hx of hernia repair Status post biopsy of kidney Social History Smoking Status: Former smoker quit date: 03/22/90 pack-years: 40 second hand exposure: No alcohol intake: never substance use type: does not use caffeine: Yes what type of physical activity do you participate in: none frequency: does not exercise ROS ROS ED Respiratory/Chest Respiratory/Chest: Reports cough, dyspnea and other Details: Hemoptysis EXAM Physical Exam Const Vital Signs: 09/02/20 17:06 09/02/20 17:10 09/02/20 17:13 Temperature 98.1 F 98.1 F Temperature Source Temporal Temporal Pulse Rate 104 H 102 H Respiratory Rate 28 H 23 H Respiratory Effort Short of Breath Respiratory Depth Normal Respiratory Pattern Normal Blood Pressure 118/44 L 118/44 L Blood Pressure Mean 68 68 Pulse Ox 67 93 93 Oxygen Delivery Method Room Air Non-Rebreather Non-Rebreather Oxygen Flow Rate (L/min) 15 15 Fraction of Inspired Oxygen (FIO2) 09/02/20 17:24 09/02/20 17:28 09/02/20 18:01 Temperature Temperature Source Pulse Rate 98 Respiratory Rate 16 Respiratory Effort Respiratory Depth Respiratory Pattern Blood Pressure Blood Pressure Mean Pulse Ox 99 100 98 Oxygen Delivery Method Non-Rebreather Venturi Mask Venturi Mask Oxygen Flow Rate (L/min) 15 15 15 Fraction of Inspired Oxygen (FIO2) 100 50 50 09/02/20 18:05 09/02/20 18:10 09/02/20 18:15 Temperature 98.1 F Temperature Source Temporal Pulse Rate 99 99 Respiratory Rate 21 H 21 H Respiratory Effort Respiratory Depth Respiratory Pattern Blood Pressure 164/87 H 164/87 H Blood Pressure Mean 112 112 Pulse Ox 95 95 95 Oxygen Delivery Method Nasal Cannula Nasal Cannula Nasal Cannula Oxygen Flow Rate (L/min) 5 6 6 Fraction of Inspired Oxygen (FIO2) 50 09/02/20 19:00 Temperature 98 F Temperature Source Temporal Pulse Rate 99 Respiratory Rate 19 H Respiratory Effort Respiratory Depth Respiratory Pattern Blood Pressure 165/83 H Blood Pressure Mean 110 Pulse Ox 94 Oxygen Delivery Method Nasal Cannula Oxygen Flow Rate (L/min) 5 Fraction of Inspired Oxygen (FIO2) Positive well nourished and well developed General Appearance ED: well developed and NAD HEENT Reports TM's clear and moist mucous membranes normocephalic and atraumatic; Negative for trauma or tenderness Tympanic Membrane ED: Yes TM's clear Eyes PERRL and EOMs intact bilaterally General Eye ED: Negative for pale conjunctiva or scleral icterus Neck no lymphadenopathy, supple and no JVD General: Negative for tenderness Chest Wall inspection of chest normal and palpation of chest normal Chest: Negative for tenderness Resp normal respiratory effort and clear to auscultation bilaterally Effort and Inspection: Negative for respiratory distress or pain with movement Auscultation: rales, rhonchi and wheezes; Negative for diminished lung sounds Cardio regular rhythm, S1 normal heart sound, S2 normal heart sound and no murmurs Rate: tachycardic Peripheral Pulses: pulses 2+ throughout GI normal to inspection, nondistended, normoactive bowel sounds, soft to palpation, non-tender, non-distended and no masses Back/Spine no CVA tenderness and no thoracic nor lumbar tenderness Extremity normal to inspection General Extremety ED: Negative for edema General Extremity: Negative for edema Neuro oriented x3, CN's II-XII intact bilaterally, no sensory deficits noted and gait normal Sensorium / Orientation: awake, alert, oriented to person, oriented to place and oriented to time Motor Exam: strength 5/5 throughout and strength abnormal Psych mental status grossly normal Skin no rashes or lesions noted and no wounds MDM MDM MDM Narrative Medical decision making narrative: Case was discussed with Dr. Edwar Muro who is on for ICU and pulmonology. I also discussed case with hospitalist who discussed case with Dr. Edwar Muro as well and decision was made that we should transfer patient to tertiary care center for concern about pulmonary hemorrhage and possible need for interventional radiology. Patient was treated with Zosyn for possibility of pneumonia. Cultures were ordered and will be pending. Lactate was 1.5 and bleeding times were normal. Case was discussed with [facility] and I was told they do not have beds available for the patient. I discussed case with [facility] cdl instructor as well as the emergency room physician who accepted transfer of patient to their emergency department. Lab Data Attestation: I reviewed the patient's lab results. Labs: Laboratory Results - last 24 hr 09/02/20 09/02/20 09/02/20 17:25 17:25 17:25 WBC 16.1 H RBC 2.94 L Hgb 8.8 L Hct 27.3 L MCV 92.9 MCH 29.9 MCHC 32.2 RDW Std Deviation 45.8 H RDW Coeff of [place] 13.6 Plt Count 254 MPV 10.9 Immature Gran % (Auto) 0.600 Neut % (Auto) 92.4 H Lymph % (Auto) 1.2 L [place] % (Auto) 5.7 Eos % (Auto) 0.0 Baso % (Auto) 0.1 Absolute Neuts (auto) 14.9 H Absolute Lymphs (auto) 0.19 L Nucleated RBC % 0 Differential Comment SEE COMMENT Toxic Granulation RARE Platelet Estimate ADEQUATE RBC Morphology N CHROM Polychromasia RARE Hypochromasia RARE Anisocytosis RARE Macrocytosis RARE Ovalocytes RARE PT INR APTT Sodium 137 Potassium 4.3 Chloride 98 Carbon Dioxide 34.0 H Anion Gap 5 BUN 32 H Creatinine 3.39 H Estim Creat Clear Calc 16.25 Est GFR (MDRD) Af Amer 22 L Est GFR (MDRD) Non-Af 19 L BUN/Creatinine Ratio 9.4 L Glucose 159 H Lactic Acid Calcium 8.2 L Troponin I 0.059 H B-Natriuretic Peptide 950.4 H 09/02/20 09/02/20 17:25 17:55 WBC RBC Hgb Hct MCV MCH MCHC RDW Std Deviation RDW Coeff of [place] Plt Count MPV Immature Gran % (Auto) Neut % (Auto) Lymph % (Auto) [place] % (Auto) Eos % (Auto) Baso % (Auto) Absolute Neuts (auto) Absolute Lymphs (auto) Nucleated RBC % Differential Comment Toxic Granulation Platelet Estimate RBC Morphology Polychromasia Hypochromasia Anisocytosis Macrocytosis Ovalocytes PT 14.0 INR 1.1 APTT 25.9 Sodium Potassium Chloride Carbon Dioxide Anion Gap BUN Creatinine Estim Creat Clear Calc Est GFR (MDRD) Af Amer Est GFR (MDRD) Non-Af BUN/Creatinine Ratio Glucose Lactic Acid 1.5 Calcium Troponin I B-Natriuretic Peptide Radiography Chest X-Ray - ED: 1 View Diagnostic Testing: Chest x-ray 1 view obtained interpreted by myself as bilateral fluffy infiltrates. Radiology felt there were bilateral infiltrates consistent with pneumonia. EKG Initial EKG: Comments: Sinus rhythm with a ventricular rate of 101 bpm with a right bundle branch block and left anterior fascicular block. When Prior EKG tracings: available for review Prior: Unchanged Discharge Plan Triage Chief Complaint: Shortness of Breath ED Provider: Maci Hunter Dx/Rx/DC Orders Clinical Impression: Hemoptysis, Pneumonia, Acute respiratory failure with hypoxemia Prescriptions: No Action levothyroxine 75 mcg tablet 75 mcg PO DAILY RF: 0 finasteride 5 MG tablet 5 mg PO DAILY RF: 0 Virt-Caps 1 mg Capsule 1 cap PO DAILY Qty: 30 RF: 0 prednisone 20 mg Tablet 40 mg PO DAILY@0800 Qty: 6 RF: 0 sennosides-docusate sodium [Stool Softener-Stimulant Laxat] 8.6-50 mg Tablet 2 tab PO BID PRN PRN (Reason: Constipation) Qty: 0 RF: 0 pantoprazole [Protonix] 40 mg tablet,delayed release (DR/EC) 40 mg PO BID Qty: 60 RF: 0 gabapentin [Neurontin] 600 mg tablet 300 mg PO QHS Qty: 0 RF: 0 cyanocobalamin (vitamin B-12) 1,000 mcg tablet 1,000 mcg PO DAILY Qty: 30 RF: 1 budesonide-formoterol 160-4.5 mcg/actuation HFA aerosol inhaler 2 puff INHALATION BID Qty: 3 RF: 3 Primary Care Provider: Iván Ruby Chi Referrals: Iván Ruby Chi, MD [Primary Care Provider] - Disposition Disposition: Transfer to another type HCF
[2020-09-02 17:40] LABS: Absolute Lymphocyte Count 0.19 X10^3/uL (0.83-4.51); Absolute Neutrophil Count 14.9 X10^3/uL (2.0-7.7); Basophil# 0.01 X10^3/uL; Basophil% 0.1 % (0-1); Hematocrit 27.3 % (40-54); Hemoglobin 8.8 g/dL (13.0-16.5); Lymphocyte # 0.19 X10^3/ul (0.83-4.51); Lymphocyte % 1.2 % (19-41); Mean Corp Hgb Conc 32.2 g/dL (32-36); Mean Corpuscular Hgb 29.9 pg (27.0-32.0); Mean Corpuscular Volume 92.9 fL (80-94); Mean Platelet Vol. 10.9 fl (6.2-12.0); Monocyte# 0.92 X10^3/uL; Monocyte% 5.7 % (0-10); NRBC Flagged by Analyzer 0 % (0-5); Neutrophil % 92.4 % (47-70); POSITIVE DIFFERENTIAL YES; Platelet Count 254 K/mm3 (150-450); RBC Distribution Width CV 13.6 % (11.6-14.6); RBC Distribution Width SD 45.8 fl (35.1-43.9); Red Blood Count 2.94 M/mm3 (4.6-6.2); White Blood Count 16.1 K/mm3 (4.4-11.0)
[2020-09-02 17:56] LABS: Differential Indicated SCAN CRITERIA MET
[2020-09-02 17:57] LABS: Anion Gap 5 (5-15); BUN 32 mg/dL (7-18); BUN/Creat Ratio 9.4 RATIO (10-20); Calcium,Total 8.2 mg/dL (8.5-10.1); Chloride 98 mmol/L (98-107); Creatinine, Serum 3.39 mg/dL (0.70-1.30); EST Glomerular Filtration Rate 19 mL/min (>60); Est Glom Filt Rate - Afr Amer 22 mL/min (>60); Estimated Creatinine Clearance 16.25 ml/min; Glucose 159 mg/dL (74-106); Potassium 4.3 mmol/L (3.5-5.1); Sodium Level 137 mmol/L (136-145)
[2020-09-02] MEDS: Ipratropium/Albuterol Sulfate 3 ML AMPUL.NEB INHALATION (17:59)
[2020-09-02 18:05] LABS: Platelet Estimate ADEQUATE (ADEQ); Red Cell Morphology N CHROM NORMAL (NORM C&C)
[2020-09-02 18:06] LABS: Anisocytosis RARE; Hypochromasia RARE; Macrocytosis RARE; Ovalocyte RARE; Polychromasia RARE; Toxic Granulation RARE
[2020-09-02 18:26] LABS: Lactic Acid 1.5 mmol/L (0.4-1.9)
[2020-09-02 18:28] LABS: International Normalized Ratio 1.1
[2020-09-02 18:29] LABS: Partial Thromboplast Time 25.9 Seconds (24.1-36.2)
[2020-09-02 18:34] LABS: BNP,B-Type NATRIURETIC PEPTIDE 950.4 pg/mL (0-100)
--- NOTE | 2020-09-02 19:00 | CON.PCM.HO_ITS ---
HPI Consult Data Date of Consult: 09/02/20 HPI Narrative HPI Narrative: JASON TOWNSEND, is a 84 M who presents [facility] Medical History Allergic rhinitis Anemia Asthma Atherosclerotic heart disease of [place] coronary artery without angina pectoris Atrial fibrillation AVF (arteriovenous fistula) Chest pain Chronic renal failure, stage 4 (severe) Chronic renal failure, stage 5 COPD (chronic obstructive pulmonary disease) Hearing loss, left Hearing loss, right Heartburn History of non-ST elevation myocardial infarction (NSTEMI) Hypersomnia Hypothyroidism Kidney disease Leg cramps Lymphadenopathy Myocardial infarct Paroxysmal atrial fibrillation Periodic limb movement disorder Premature ventricular contractions Purpura Shortness of breath Shortness of breath on exertion Silicosis Wears dentures Wears glasses Home Medications finasteride 5 mg PO DAILY 11/09/14 [History Last Taken 08/26/20] budesonide-formoterol HFA 160 mcg-4.5 mcg/actuation aerosol inhaler 2 puff INHALATION BID #3 device 04/30/19 [Rx Last Taken 08/26/20] levothyroxine 75 mcg tablet 75 mcg PO DAILY 03/01/20 [History Last Taken 08/24/20] B complex with C 20-folic acid [Virt-Caps] 1 cap PO DAILY #30 cap 08/30/20 [Rx Last Taken Unknown] cyanocobalamin (vitamin B-12) 1,000 mcg PO DAILY #30 tab 08/30/20 [Rx Last Taken Unknown] gabapentin [Neurontin] 300 mg PO QHS #0 tablet 08/30/20 [Rx Last Taken 08/25/20] pantoprazole [Protonix] 40 mg PO BID #60 tab 08/30/20 [Rx Last Taken Unknown] prednisone 40 mg PO DAILY@0800 #6 tab 08/30/20 [Rx Last Taken Unknown] sennosides-docusate sodium [Stool Softener-Stimulant Laxat] 2 tab PO BID PRN PRN #0 tab 08/30/20 [Rx Last Taken Unknown] Allergy/AdvReac Type Severity Reaction Status Date / Time No Known Allergies Allergy Verified 08/26/20 14:31 Family History Father , age 82 CAD (coronary artery disease) Mother , Age 88 Breast cancer Surgical History AV fistula History of cataract surgery History of left heart catheterization History of transurethral resection of prostate Hx of hernia repair Status post biopsy of kidney Social History Smoking Status: Former smoker quit date: 03/22/90 pack-years: 40 second hand exposure: No alcohol intake: never substance use type: does not use caffeine: Yes what type of physical activity do you participate in: none frequency: does not exercise Lab / Micro Data Result Diagrams: 09/02/20 17:25 09/02/20 17:25 Labs: Laboratory Results - last 24 hr 09/02/20 09/02/20 09/02/20 17:25 17:25 17:25 WBC 16.1 H RBC 2.94 L Hgb 8.8 L Hct 27.3 L MCV 92.9 MCH 29.9 MCHC 32.2 RDW Std Deviation 45.8 H RDW Coeff of [place] 13.6 Plt Count 254 MPV 10.9 Immature Gran % (Auto) 0.600 Neut % (Auto) 92.4 H Lymph % (Auto) 1.2 L [place] % (Auto) 5.7 Eos % (Auto) 0.0 Baso % (Auto) 0.1 Absolute Neuts (auto) 14.9 H Absolute Lymphs (auto) 0.19 L Nucleated RBC % 0 Differential Comment SEE COMMENT Toxic Granulation RARE Platelet Estimate ADEQUATE RBC Morphology N CHROM Polychromasia RARE Hypochromasia RARE Anisocytosis RARE Macrocytosis RARE Ovalocytes RARE PT INR APTT Sodium 137 Potassium 4.3 Chloride 98 Carbon Dioxide 34.0 H Anion Gap 5 BUN 32 H Creatinine 3.39 H Estim Creat Clear Calc 16.25 Est GFR (MDRD) Af Amer 22 L Est GFR (MDRD) Non-Af 19 L BUN/Creatinine Ratio 9.4 L Glucose 159 H Lactic Acid Calcium 8.2 L Troponin I 0.059 H B-Natriuretic Peptide 950.4 H 09/02/20 09/02/20 17:25 17:55 WBC RBC Hgb Hct MCV MCH MCHC RDW Std Deviation RDW Coeff of [place] Plt Count MPV Immature Gran % (Auto) Neut % (Auto) Lymph % (Auto) [place] % (Auto) Eos % (Auto) Baso % (Auto) Absolute Neuts (auto) Absolute Lymphs (auto) Nucleated RBC % Differential Comment Toxic Granulation Platelet Estimate RBC Morphology Polychromasia Hypochromasia Anisocytosis Macrocytosis Ovalocytes PT 14.0 INR 1.1 APTT 25.9 Sodium Potassium Chloride Carbon Dioxide Anion Gap BUN Creatinine Estim Creat Clear Calc Est GFR (MDRD) Af Amer Est GFR (MDRD) Non-Af BUN/Creatinine Ratio Glucose Lactic Acid 1.5 Calcium Troponin I B-Natriuretic Peptide
--- NOTE | 2020-09-02 19:02 | PCM.HP.STD ---
HPI - General HPI Narrative JASON TOWNSEND, is a 84 M with an extensive PMH as outlined who presents with a complaint of generalised malaise and hemoptysis which have been going on for about 3 days. He went to see his primary care doctor today and had a chest x-ray which was concerning for pneumonia. His PCP so he was sent into the ED. Patient has ESRD and is on dialysis but does not know the cause of his ESRD. He does not normally wear oxygen at home and denies any fever or chills, chest pain, palpitations or dizziness, lightheadedness, nausea vomiting or diarrhea. He was recently admitted and managed for acute on chronic anemia required transfusion of 2 units of blood. His hemoglobin was down to 6.7 and his anemia was thought to be due to chronic kidney disease. General surgery was consulted during that admission and it was recommended that he has EGD on outpatient basis with his certified ophthalmic surgical assistant in 2 weeks time. Patient states his hemoptysis is associated with clots. He did go for dialysis today. Review of systems was otherwise negative. Patient was very hypoxic in the ED with saturation down in the 40s but subsequently weaned down to nasal cannula oxygen and was on 6 L at the time I saw him. Temperature was 98.1 Fahrenheit and pulse rate was 99 with blood pressure of 164/87 respiratory rate of 21. He was saturating at 95% on 6 L of oxygen. Hemoglobin was 8.8 and WBC was 16.1 with platelets of 254. During my review, patient was coughing up corona blood. [facility] Medical History (Updated 09/02/20 @ 19:[address] Ivory Pedersen MD) Allergic rhinitis Anemia Asthma Atherosclerotic heart disease of [place] coronary artery without angina pectoris Atrial fibrillation AVF (arteriovenous fistula) Chest pain Chronic renal failure, stage 4 (severe) Chronic renal failure, stage 5 COPD (chronic obstructive pulmonary disease) Hearing loss, left Hearing loss, right Heartburn History of non-ST elevation myocardial infarction (NSTEMI) Hypersomnia Hypothyroidism Kidney disease Leg cramps Lymphadenopathy Myocardial infarct Paroxysmal atrial fibrillation Periodic limb movement disorder Premature ventricular contractions [place] Shortness of breath Shortness of breath on exertion Silicosis Wears dentures Wears glasses Home Medications finasteride 5 mg PO DAILY 11/09/14 [History Last Taken 08/26/20] budesonide-formoterol HFA 160 mcg-4.5 mcg/actuation aerosol inhaler 2 puff INHALATION BID #3 device 04/30/19 [Rx Last Taken 08/26/20] levothyroxine 75 mcg tablet 75 mcg PO DAILY 03/01/20 [History Last Taken 08/24/20] B complex with C 20-folic acid [Virt-Caps] 1 cap PO DAILY #30 cap 08/30/20 [Rx Last Taken Unknown] cyanocobalamin (vitamin B-12) 1,000 mcg PO DAILY #30 tab 08/30/20 [Rx Last Taken Unknown] gabapentin [Neurontin] 300 mg PO QHS #0 tablet 08/30/20 [Rx Last Taken 08/25/20] pantoprazole [Protonix] 40 mg PO BID #60 tab 08/30/20 [Rx Last Taken Unknown] prednisone 40 mg PO DAILY@0800 #6 tab 08/30/20 [Rx Last Taken Unknown] sennosides-docusate sodium [Stool Softener-Stimulant Laxat] 2 tab PO BID PRN PRN #0 tab 08/30/20 [Rx Last Taken Unknown] Allergy/AdvReac Type Severity Reaction Status Date / Time No Known Allergies Allergy Verified 08/26/20 14:31 Family History Father , age 82 CAD (coronary artery disease) Mother , Age 88 Breast cancer Surgical History AV fistula History of cataract surgery History of left heart catheterization History of transurethral resection of prostate Hx of hernia repair Status post biopsy of kidney Social History Smoking Status: Former smoker quit date: 03/22/90 pack-years: 40 second hand exposure: No alcohol intake: never substance use type: does not use caffeine: Yes what type of physical activity do you participate in: none frequency: does not exercise ROS Constitutional Constitutional: Reports malaise and weakness; Denies anorexia, change in weight, chills, fatigue or fever(s) ENT HEENT: Denies dysphagia, headache(s), post nasal drip or sore throat Cardiovascular Cardiovascular: Denies chest pain, dyspnea on exertion, edema, lightheadedness, orthopnea, palpitations or syncope Respiratory/Chest Respiratory/Chest: Reports cough, dyspnea, hemoptysis, shortness of breath at rest and shortness of breath with exertion; Denies excessive phlegm production or productive cough Gastrointestinal Gastrointestinal: Denies abdominal pain, coffee ground emesis, constipation, diarrhea, hematemesis, hematochezia or melena Genitourinary Genitourinary: Denies burning urination Musculoskeletal Musculoskeletal: Denies arthralgias Neurologic Neurologic: Denies confusion, dizziness or seizures Psychiatric Psychiatric: Denies anxiety Endocrine Endocrinology: Denies excessive sweating Hematologic/Lymphatic Hematologic/Lymphatic: Denies easy bleeding Allergic/Immunologic Allergic/Immunologic: Denies asthma Vital Signs Vital Signs Vital Signs: 09/02/20 17:06 09/02/20 17:10 09/02/20 17:13 Temperature 98.1 F 98.1 F Temperature Source Temporal Temporal Pulse Rate 104 H 102 H Respiratory Rate 28 H 23 H Respiratory Effort Short of Breath Respiratory Depth Normal Respiratory Pattern Normal Blood Pressure 118/44 L 118/44 L Blood Pressure Mean 68 68 Pulse Ox 67 93 93 Oxygen Delivery Method Room Air Non-Rebreather Non-Rebreather Oxygen Flow Rate (L/min) 15 15 Fraction of Inspired Oxygen (FIO2) 09/02/20 17:24 09/02/20 17:28 09/02/20 18:01 Temperature Temperature Source Pulse Rate 98 Respiratory Rate 16 Respiratory Effort Respiratory Depth Respiratory Pattern Blood Pressure Blood Pressure Mean Pulse Ox 99 100 98 Oxygen Delivery Method Non-Rebreather Venturi Mask Venturi Mask Oxygen Flow Rate (L/min) 15 15 15 Fraction of Inspired Oxygen (FIO2) 100 50 50 09/02/20 18:05 09/02/20 18:10 09/02/20 18:15 Temperature 98.1 F Temperature Source Temporal Pulse Rate 99 99 Respiratory Rate 21 H 21 H Respiratory Effort Respiratory Depth Respiratory Pattern Blood Pressure 164/87 H 164/87 H Blood Pressure Mean 112 112 Pulse Ox 95 95 95 Oxygen Delivery Method Nasal Cannula Nasal Cannula Nasal Cannula Oxygen Flow Rate (L/min) 5 6 6 Fraction of Inspired Oxygen (FIO2) 50 Physical Exam Const alert and oriented x3 General Appearance: cooperative Orientation / Consciousness: lethargic HEENT normocephalic, head/scalp atraumatic and hearing grossly normal bilaterally HEENT Narrative: oral mucosa membranes dry Eyes PERRL and EOMs intact bilaterally Neck no lymphadenopathy Resp Resp Narrative: patient tachypneic, coarse crackles in all lung [place] bilaterally. On 6 L of oxygen by nasal cannula. Patient coughing up corona blood Cardio regular rhythm, S1 normal heart sound, S2 normal heart sound and no murmurs Cardio Narrative: tachycardic GI normal to inspection, nondistended, normoactive bowel sounds, soft to palpation, non-tender and non-distended Extremity normal to inspection, full ROM and no clubbing, cyanosis or edema Peripheral Pulses: Yes pulses 2+ throughout Skin no rashes or lesions noted Neuro oriented x3 Sensorium / Orientation: awake and alert Psych affect normal Lab / Micro Data Result Diagrams: 09/02/20 17:25 09/02/20 17:25 Labs: Laboratory Results - last 24 hr 09/02/20 09/02/20 09/02/20 17:25 17:25 17:25 WBC 16.1 H RBC 2.94 L Hgb 8.8 L Hct 27.3 L MCV 92.9 MCH 29.9 MCHC 32.2 RDW Std Deviation 45.8 H RDW Coeff of Sange[place] 13.6 Plt Count 254 MPV 10.9 Immature Gran % (Auto) 0.600 Neut % (Auto) 92.4 H Lymph % (Auto) 1.2 L [place] % (Auto) 5.7 Eos % (Auto) 0.0 Baso % (Auto) 0.1 Absolute Neuts (auto) 14.9 H Absolute Lymphs (auto) 0.19 L Nucleated RBC % 0 Differential Comment SEE COMMENT Toxic Granulation RARE Platelet Estimate ADEQUATE RBC Morphology N CHROM Polychromasia RARE Hypochromasia RARE Anisocytosis RARE Macrocytosis RARE Ovalocytes RARE PT INR APTT Sodium 137 Potassium 4.3 Chloride 98 Carbon Dioxide 34.0 H Anion Gap 5 BUN 32 H Creatinine 3.39 H Estim Creat Clear Calc 16.25 Est GFR (MDRD) Af Amer 22 L Est GFR (MDRD) Non-Af 19 L BUN/Creatinine Ratio 9.4 L Glucose 159 H Lactic Acid Calcium 8.2 L Troponin I 0.059 H B-Natriuretic Peptide 950.4 H 09/02/20 09/02/20 17:25 17:55 WBC RBC Hgb Hct MCV MCH MCHC RDW Std Deviation RDW Coeff of [place] Plt Count MPV Immature Gran % (Auto) Neut % (Auto) Lymph % (Auto) [place] % (Auto) Eos % (Auto) Baso % (Auto) Absolute Neuts (auto) Absolute Lymphs (auto) Nucleated RBC % Differential Comment Toxic Granulation Platelet Estimate RBC Morphology Polychromasia Hypochromasia Anisocytosis Macrocytosis Ovalocytes PT 14.0 INR 1.1 APTT 25.9 Sodium Potassium Chloride Carbon Dioxide Anion Gap BUN Creatinine Estim Creat Clear Calc Est GFR (MDRD) Af Amer Est GFR (MDRD) Non-Af BUN/Creatinine Ratio Glucose Lactic Acid 1.5 Calcium Troponin I B-Natriuretic Peptide Assessment & Plan Assessment/Plan (1) Hemoptysis: (2) Acute respiratory failure with hypoxia: PLAN: #Acute hypoxic respiratory failure due to hemoptysis, 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 I did call supervisor anodizing Dr. Muro and discussed my concerns with him as I do not think that patient should be admitted here and needed to go to a tertiary facility. The cause of his ESRD is not clear. I did review his nephrology's notes. 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 His chest x-ray did show new severe perihilar or peribronchial infiltrates with areas of bibasilar consolidation without cardiomegaly with findings suggestive of a peribronchial pneumonic process versus aspiration. In light of concerns for diffuse alveolar hemorrhage, and per my discussion with the supervisor anodizing, decision made to transfer patient to a tertiary center in the event that he needed interventional radiology evaluation if the bleeding worsened. ED doctor informed and patient is to be transferred. Visit Charges Office Visits / Consults: [id number] ED Visit; High/Threatening Severity
== END 2020-09-02 23:05 | disposition short-term general hospital (02) ==
PROVIDERS: Emergency Provider Emergency Medicine; PCP Family Medicine Geriatric Medicine
DX: R04.2 Hemoptysis (principal); J44.0 Chronic obstructive pulmonary disease with (acute) lower respiratory infection; J18.9 Pneumonia, unspecified organism; J96.01 Acute respiratory failure with hypoxia; E03.9 Hypothyroidism, unspecified; I25.10 Atherosclerotic heart disease of native coronary artery without angina pectoris; I25.2 Old myocardial infarction; N18.6 End stage renal disease; D63.1 Anemia in chronic kidney disease; Z99.2 Dependence on renal dialysis; Z79.899 Other long term (current) drug therapy; Z87.891 Personal history of nicotine dependence
CPT/HCPCS: 71046; 80048; 83605; 83880; 84484; 85025; 85610; 85730; 87040; 87070; 87205; 87426; 93005; 94640; 96365; 99285; J7050; A4216